=== PATIENT | female | born 1930 | race African-American/Black ===

== ENCOUNTER 2017-05-14 14:38 | Inpatient (IN) | payer MEDICARE, BC ==
[~2017-05-14] VITALS: Ht 149.9 cm; Wt 49.0 kg
[~2017-05-14 14:38] MED LIST: ASPI-630 PO; CARV3.12 PO; CYAN10005 PO; DARB60DI SQ; ERGO500027 PO; FERR325T58 PO; FOLI0.8T21 PO; FOLI0.8T3 PO
[2017-05-14 15:05] LABS: BASO # 0.1 x10^3/uL (0.0-0.2); BASO % 1 % (0-3); EOS % 5 % (0-3); HEMATOCRIT 30.2 % (36.0-47.0); HEMOGLOBIN 9.9 g/dL (12.0-15.5); LYMPH # 1.1 x10^3/uL (1.0-4.8); LYMPH % 15 % (24-48); MEAN CORPUSCULAR HEMOGLOBIN 28 pg (25-35); MEAN CORPUSCULAR HGB CONC 33 g/dL (31-37); MEAN CORPUSCULAR VOLUME 84 fL (79-100); MONO % 10 % (0-9); NEUT % 69 % (31-73); PLATELET COUNT 229 x10^3/uL (140-400); RED BLOOD COUNT 3.58 x10^6/uL (3.50-5.40); RED CELL DISTRIBUTION WIDTH 13.4 % (11.5-14.5); WHITE BLOOD COUNT 7.6 x10^3/uL (4.0-11.0)
[2017-05-14 15:20] LABS: CALCIUM 8.8 mg/dL (8.5-10.1); CREATININE 2.1 mg/dL (0.6-1.0); GFR 26.9
[2017-05-14] MEDS ORDERED: PANT40TA5 PO (15:22)
[2017-05-14] MEDS ORDERED: FOLI0.8T21 PO (15:22)
--- NOTE | 2017-05-14 15:23 | RAD ---
EXAM: CHEST 1 VIEW History :syncope COMPARISON: 02/13/2016 TECHNIQUE: Single portable radiograph of the chest FINDINGS: The cardiac silhouette is unremarkable. The lungs are clear bilaterally. The costophrenic sulci are clear and well demarcated. Surgical clips identified in the left axillary region. IMPRESSION: No radiographic evidence of an acute cardiopulmonary process.
[2017-05-14 15:24] LABS: ALBUMIN 2.7 g/dL (3.4-5.0); ALBUMIN/GLOBULIN RATIO 0.8 (1.0-1.7); TOTAL BILIRUBIN 0.3 mg/dL (0.2-1.0); TOTAL PROTEIN 6.2 g/dL (6.4-8.2)
[2017-05-14] MEDS ORDERED: HYDR-971 PO (15:24)
--- NOTE | 2017-05-14 15:36 | EKG ---
[facility] [address] [place] [address] Test Date: 2017-05-14 Test Time: 14:42:50 Pat Name: SHYAM HAM Department: Room: Gender: F Tree Surgeon: : [id number] Requested By: BHUMIKA LONG Order Number: [id number] Reading MD: Lisandro Wagoner Measurements Intervals [place] Rate: 55 P: 27 [place]: 138 QRS: 41 QRSD: 78 T: 59 QT: 442 QTc: 425 Interpretive Statements SINUS RHYTHM QRS(T) CONTOUR ABNORMALITY CONSISTENT WITH ANTEROSEPTAL INFARCT AGE UNDETERMINED RI6.01 Unconfirmed report Compared to ECG 02/13/2016 11:29:40 Myocardial infarct finding now present ST (T wave) deviation no longer present Electronically Signed On 05-23-2017 12:52:19 CDT by Lisandro Wagoner
[2017-05-14 15:43] LABS: BILIRUBIN,URINE NEGATIVE (NEG); GLUCOSE,URINE NEGATIVE (NEG); NITRITE,URINE NEGATIVE (NEG); PROTEIN,URINE NEGATIVE (NEG-TRACE); UROBILINOGEN,URINE 0.2 mg/dL (0.2 mg/dL)
[2017-05-14 15:54] LABS: BACTERIA,URINE MODERATE /HPF (0-FEW); RBC,URINE 0 /HPF (0-2); SQUAMOUS EPITHELIAL CELL,UR MOD /LPF
--- NOTE | 2017-05-14 16:01 | PHYS DOC ---
Past Medical History Past Medical History: Anemia, Cancer, Dementia, GERD, Heart Disease, Hypertension, Hypothyroid, UTI, Unknown, Other Additional Past Medical Histor: PT STATES SHE HAS A HEART AND KIDNEY PROBLEM, Breast Ca Past Surgical History: Tonsillectomy Additional Past Surgical Histo: CATARACTS, BILAT.MASECTOMY Alcohol Use: Rarely Drug Use: None Adult General Chief Complaint Chief Complaint: SYNCOPE HPI HPI Patient is a 86 year old AA female patient who presents with witnessed syncopal episode swelling at [facility]. Patient was attending a meeting and standing she felt lightheaded and dizzy. She reports slamming into the ground but denies injury. Patient states EMS were then contacted. Staff members witnessed to brief syncopal episodes lasting less than 30 seconds. No reported witnessed seizure episodes. Denies headache, chest pain palpitations or shortness of breath prior to symptoms. Patient did state she felt as though she needed to have a bowel movement prior to episode. Currently denies any symptoms. Patient is on Coreg twice daily. She denies any new change medications , missed medications, nausea vomiting, diarrhea, any acute medical complaints. Review of Systems Review of Systems Review symptoms as per history of present illness. Allergies Allergies Allergies Coded Allergies Type Severity Reaction Last Updated Verified Penicillins Allergy Intermediate Rash 02/14/16 Yes latex Allergy Intermediate Rash 02/14/16 Yes Physical Exam Physical Exam Constitutional: Well developed, well nourished, no acute distress, non-toxic appearance. [] HENT: Normocephalic, atraumatic, bilateral external ears normal, oropharynx moist, nose normal. [] Eyes: PERRLA, EOMI, conjunctiva normal, no discharge. [] Neck: Normal range of motion, no tenderness, supple, no stridor. [] Cardiovascular:Heart rate regular rhythm, no murmur [] Lungs & Thorax: Bilateral breath sounds clear to auscultation [] Abdomen: Bowel sounds normal, soft. [] Skin: Warm, dry, no erythema, no rash. [] Back: No tenderness. [] Extremities: No tenderness, no cyanosis, no clubbing, ROM intact, no edema. [] Neurologic: Alert and oriented X 2, normal motor function, normal sensory function, no focal deficits noted. [] Psychologic: Affect normal, judgement normal, mood normal. [] Current Patient Data Vital Signs Vital Signs Date Time Temp Pulse Resp B/P (MAP) Pulse Ox O2 Delivery O2 Flow Rate FiO2 05/14/17 18:46 82 18 136/59 (84) 98 Room Air 05/14/17 14:40 97.7 97.7 Lab Values Laboratory Tests Test 05/14/17 14:50 05/14/17 15:30 White Blood Count 7.6 x10^3/uL (4.0-11.0) Red Blood Count 3.58 x10^6/uL (3.50-5.40) Hemoglobin 9.9 g/dL (12.0-15.5) L Hematocrit 30.2 % (36.0-47.0) L Mean Corpuscular Volume 84 fL (79-100) Mean Corpuscular Hemoglobin 28 pg (25-35) Mean Corpuscular Hemoglobin Concent 33 g/dL (31-37) Red Cell Distribution Width 13.4 % (11.5-14.5) Platelet Count 229 x10^3/uL (140-400) Neutrophils (%) (Auto) 69 % (31-73) Lymphocytes (%) (Auto) 15 % (24-48) L Monocytes (%) (Auto) 10 % (0-9) H Eosinophils (%) (Auto) 5 % (0-3) H Basophils (%) (Auto) 1 % (0-3) Neutrophils # (Auto) 5.3 x10^3uL (1.8-7.7) Lymphocytes # (Auto) 1.1 x10^3/uL (1.0-4.8) Monocytes # (Auto) 0.8 x10^3/uL (0.0-1.1) Eosinophils # (Auto) 0.3 x10^3/uL (0.0-0.7) Basophils # (Auto) 0.1 x10^3/uL (0.0-0.2) Sodium Level 132 mmol/L (136-145) L Potassium Level 5.0 mmol/L (3.5-5.1) Chloride Level 98 mmol/L (98-107) Carbon Dioxide Level 27 mmol/L (21-32) Anion Gap 7 (6-14) Blood Urea Nitrogen 18 mg/dL (7-20) Creatinine 2.1 mg/dL (0.6-1.0) H Estimated GFR (Cockcroft-Gault) 26.9 BUN/Creatinine Ratio 9 (6-20) Glucose Level 142 mg/dL (70-99) H Calcium Level 8.8 mg/dL (8.5-10.1) Total Bilirubin 0.3 mg/dL (0.2-1.0) Aspartate Amino Transferase (AST) 18 U/L (15-37) Alanine Aminotransferase (ALT) 15 U/L (14-59) Alkaline Phosphatase 61 U/L (46-116) Troponin I Quantitative < 0.017 ng/mL (0.000-0.055) Total Protein 6.2 g/dL (6.4-8.2) L Albumin 2.7 g/dL (3.4-5.0) L Albumin/Globulin Ratio 0.8 (1.0-1.7) L Urine Collection Type Unknown Urine Color Yellow Urine Clarity Cloudy Urine pH 6.0 Urine Specific [place] 1.010 Urine Protein Negative mg/dL (NEG-TRACE) Urine Glucose (UA) Negative mg/dL (NEG) Urine Ketones (Stick) Negative mg/dL (NEG) Urine Blood Negative (NEG) Urine Nitrite Negative (NEG) Urine Bilirubin Negative (NEG) Urine Urobilinogen Dipstick 0.2 mg/dL (0.2 mg/dL) Urine Leukocyte Esterase Small (NEG) Urine RBC 0 /HPF (0-2) Urine WBC 5-10 /HPF (0-4) Urine Squamous Epithelial Cells Mod /LPF Urine Transitional Epithelial Cells Few /LPF Urine Bacteria Moderate /HPF (0-FEW) Urine Hyaline Casts Moderate /HPF Urine Mucus Slight /LPF Laboratory Tests 05/14/17 14:50 Laboratory Tests 05/14/17 14:50 EKG EKG Sinus bradycardia, rate 55, no acute ST-T wave changes, QTC 425.[] Radiology/Procedures Radiology/Procedures [CT head: No acute cardiopulmonary disease per radiology report] Course & Med Decision Making Course & Med Decision Making Pertinent Labs and Imaging studies reviewed. (See chart for details) [With witnessed syncopal episode. Denies headache. Neurologic exam is negative. Patient is bradycardic, heart rate 55.] Dragon Disclaimer Dragon Disclaimer This electronic medical record was generated, in whole or in part, using a voice recognition dictation system. Departure Departure Impression: Primary Impression: Syncope Additional Impression: Bradycardia Disposition: 09 ADMITTED INPATIENT Admitting Physician: Charito Chaparro Referrals: DIMITRIOS LONG (PCP) Problem Qualifiers BHUMIKA LONG DO May 14, 2017 16:01
--- NOTE | 2017-05-14 17:24 | RAD ---
RS Compliance Statement: One or more of the following individualized dose reduction techniques were utilized for this examination: 1. Automated exposure control 2. Adjustment of the mA and/or kV according to patient size 3. Use of iterative reconstruction technique CT head without contrast 05/14/2017 4:58 PM INDICATION: Dizziness, fall COMPARISON: CT head August 08, 2015 TECHNIQUE: Multiple axial CT images of the head were obtained from skull base through the vertex without intravenous contrast. FINDINGS: Head: Ventricles, sulci and basal cisterns are mildly prominent compatible with mild generalized cerebral volume loss. Low-attenuation in the periventricular white matter is compatible with moderate chronic small vessel ischemic changes. There is new calcification involving a M2 segment of the right middle cerebral artery compared to prior examination from August 08, 2015. Vascular opacifications involving the cavernous segments of internal carotid arteries and vertebral arteries are otherwise stable. There is no hydrocephalus. Nuno-white matter differentiation is normal. There is no acute intracranial hemorrhage. There is no mass, mass effect or midline shift. Posterior fossa is normal in appearance. Visualized portions of the orbits are normal with exception of bilateral lens replacement. Paranasal sinuses are well aerated. Mastoid air cells are well aerated. Scalp and calvaria are normal. IMPRESSION: No acute intracranial hemorrhage. New calcification involving the M2 segment of the middle cerebral artery (from 2014). If there are symptoms concerning ischemia in the right middle cerebral artery distribution, further evaluation with CT angiography of the head and neck may be of benefit. Mild generalized cerebral volume loss with moderate low-attenuation in the periventricular white matter compatible with chronic small vessel ischemic changes. Electronically signed by: Ne Westfall MD (05/14/2017 5:21 PM) [facility]
[2017-05-14 21:11] VITALS: BP 170/62
[2017-05-14 23:00] VITALS: BP 154/55
[2017-05-14] MEDS ORDERED: HYDROcodone/APAP 5/325MG 1 TAB TABLET PO PRN (23:00)
--- NOTE | 2017-05-14 23:07 | PDOC1 ---
History and Physical Date of Admission Date of Admission DATE: 05/14/17 TIME: 23:00 Identification/Chief Complaint Chief Complaint syncope Problems: Source Source: Chart review, Patient History of Present Illness History of Present Illness Ms. Cook is a 86 year old AA female patient admit s/p syncopal episode swelling at assisted living.. Was attending a meeting and standing she felt lightheaded and dizzy, fell to the ground, people reported she was hard to arouse > 30 seconds maybe not responsive. She is unaware of any injury from the fall, no pain. brought to ER by EMS, no shaking, no post fatigue, she now feels well has felt well recently, no change in meds she lives at [facility], PCP is Dr. Omid Mortensen Past Medical History Cardiovascular: HTN GI: Diverticulosis, Peptic Ulcer disease Heme/Onc: Anemia NOS, Cancer Musculoskeletal: Osteoarthritis Renal/: Chronic renal insuff Past Surgical History Past Surgical History: Cataract Removal, Mastectomy, Tonsillectomy, Other Family History Family History: Alcohol Abuse, Coronary Artery Disease, Other (athritis) Social History Smoke: No ALCOHOL: none Drugs: None Current Problem List Problem List Problems Medical Problems: (1) Bradycardia Status: Acute (2) Syncope Status: Acute Problems: Current Medications Current Medications Active Scripts Active Aranesp Syringe (Darbepoetin Angel In Polysorbat) 60 Mcg/0.3 Ml Disp.syrin 60 Mcg SQ WEEKLYHS Vitamin B-12 (Cyanocobalamin (Vitamin B-12)) 1,000 Mcg Tablet 1,000 Mcg PO DAILY Reported [place] 5-325 Tablet (Acetaminophen/Hydrocodone Bitart) 1 Each Tablet 1 Tab PO PRN Q6HRS PRN Sravanthi-Satinder Tablet (Folic Acid/Vitamin B Comp W-C) 0.8 Mg Tablet 0.8 Mg PO Pantoprazole Sodium 40 Mg Tablet.dr 1 Tab PO DAILY Iron Supplement (Ferrous Sulfate) 325 Mg Tablet 1 Tab PO DAILY Vitamin D2 (Ergocalciferol (Vitamin D2)) 50,000 Unit Capsule 1 Cap PO WEEKLY Coreg (Carvedilol) 3.125 Mg Tablet 1 Tab PO BID No Known Medications Prior To Admisstion (Info) Each 1 Each MC Allergies Allergies: Coded Allergies: Penicillins (Verified Allergy, Intermediate, Rash, 02/14/16) latex (Verified Allergy, Intermediate, Rash, 02/14/16) ROS General: No: Chills, Night Sweats, Fatigue, Malaise PSYCHOLOGICAL ROS: No: Anxiety, Behavioral Disorder, Concentration difficultie , Decreased libido, Depression, Disorientation, Hallucinations, Hostility, Irritablity, Memory difficulties, Mood Swings, Obsessive thoughts, Other Eyes: Yes Other, No Blurry vision, No Decreased vision, No Double vision, No Dry eyes, No Excessive tearing, No Eye Pain, No Itchy Eyes, No Loss of vision, No Photophobia , No Scotomata, No Uses contacts, No Uses glasses HEENT: YES: Nasal congestion, Nasal discharge, No: Heacaches, Visual Changes, Hearing change, Oral lesions, Sinus pain, Sore Throat, Epistaxis, Sneezing, Vocal changes, Other Respiratory: No: Cough, Hemoptysis, Orthopnea, Pleuritic Pain, Shortness of breath, SOB with excertion, Sputum Changes, Stridor, Tachypnea, Wheezing, Other Cardiovascular: No Chest Pain, No Palpitations, No Orthopnea, No Paroxysmal Noc. Dyspnea, No Edema, No Lt Headedness, No Other Gastrointestinal: No Nausea, No Vomiting, No Abdominal Pain, No Diarrhea, No Constipation, No Melena, No Hematochezia, No Other Genitourinary: No Dysuria, No Frequency, No Incontinence, No Hematuria, No Retention, No Discharge, No Urgency, No Pain, No Flank Pain, No Other, No , No , No , No , No , No , No Musculoskeletal: Yes Joint Stiffness, No Gait Disturbance, No Joint Pain, No Joint Swelling, No Muscle Pain, No Muscular Weakness, No Pain In:, No Swelling In:, No Other Neurological: No Behavorial Changes, No Bowel/Bladder ControlChng, No Confusion , No Dizziness, No Gait Disturbance, No Headaches, No Impaired Coord/balance, No Memory Loss, No Numbness/Tingling, No Seizures, No Speech Problems, No Tremors, No Visual Changes, No Weakness, No Other Skin: Yes Dry Skin, No Hair Changes, No Lumps, No Mole Changes, No Mottling, No Nail Changes, No Pruritus, No Rash, No Skin Lesion Changes, No Other, No Acne Physical Exam General: Alert, Oriented X3, Cooperative HEENT: Atraumatic, PERRLA, EOMI, Mucous membr. moist/pink Heart: no gallops, no murmurs Abdomen: Normal bowel sounds, Soft Rectal Exam: not examined Extremities: No edema, Normal pulses Skin: No significant lesion Neuro: Normal speech, Normal tone, Sensation intact, Cranial nerves 3-12 NL Psych/Mental Status: Mental status NL, Mood NL Vitals Vitals Vital Signs Date Time Temp Pulse Resp B/P (MAP) Pulse Ox O2 Delivery O2 Flow Rate FiO2 05/14/17 21:11 97.9 64 16 170/62 (98) 98 Room Air 97.9 Labs Labs Laboratory Tests Test 05/14/17 14:50 05/14/17 15:30 White Blood Count 7.6 x10^3/uL (4.0-11.0) Red Blood Count 3.58 x10^6/uL (3.50-5.40) Hemoglobin 9.9 g/dL (12.0-15.5) Hematocrit 30.2 % (36.0-47.0) Mean Corpuscular Volume 84 fL (79-100) Mean Corpuscular Hemoglobin 28 pg (25-35) Mean Corpuscular Hemoglobin Concent 33 g/dL (31-37) Red Cell Distribution Width 13.4 % (11.5-14.5) Platelet Count 229 x10^3/uL (140-400) Neutrophils (%) (Auto) 69 % (31-73) Lymphocytes (%) (Auto) 15 % (24-48) Monocytes (%) (Auto) 10 % (0-9) Eosinophils (%) (Auto) 5 % (0-3) Basophils (%) (Auto) 1 % (0-3) Neutrophils # (Auto) 5.3 x10^3uL (1.8-7.7) Lymphocytes # (Auto) 1.1 x10^3/uL (1.0-4.8) Monocytes # (Auto) 0.8 x10^3/uL (0.0-1.1) Eosinophils # (Auto) 0.3 x10^3/uL (0.0-0.7) Basophils # (Auto) 0.1 x10^3/uL (0.0-0.2) Sodium Level 132 mmol/L (136-145) Potassium Level 5.0 mmol/L (3.5-5.1) Chloride Level 98 mmol/L (98-107) Carbon Dioxide Level 27 mmol/L (21-32) Anion Gap 7 (6-14) Blood Urea Nitrogen 18 mg/dL (7-20) Creatinine 2.1 mg/dL (0.6-1.0) Estimated GFR (Cockcroft-Gault) 26.9 BUN/Creatinine Ratio 9 (6-20) Glucose Level 142 mg/dL (70-99) Calcium Level 8.8 mg/dL (8.5-10.1) Total Bilirubin 0.3 mg/dL (0.2-1.0) Aspartate Amino Transf (AST/SGOT) 18 U/L (15-37) Alanine Aminotransferase (ALT/SGPT) 15 U/L (14-59) Alkaline Phosphatase 61 U/L (46-116) Troponin I Quantitative < 0.017 ng/mL (0.000-0.055) Total Protein 6.2 g/dL (6.4-8.2) Albumin 2.7 g/dL (3.4-5.0) Albumin/Globulin Ratio 0.8 (1.0-1.7) Urine Collection Type Unknown Urine Color Yellow Urine Clarity Cloudy Urine pH 6.0 Urine Specific [place] 1.010 Urine Protein Negative mg/dL (NEG-TRACE) Urine Glucose (UA) Negative mg/dL (NEG) Urine Ketones (Stick) Negative mg/dL (NEG) Urine Blood Negative (NEG) Urine Nitrite Negative (NEG) Urine Bilirubin Negative (NEG) Urine Urobilinogen Dipstick 0.2 mg/dL (0.2 mg/dL) Urine Leukocyte Esterase Small (NEG) Urine RBC 0 /HPF (0-2) Urine WBC 5-10 /HPF (0-4) Urine Squamous Epithelial Cells Mod /LPF Urine Transitional Epithelial Cells Few /LPF Urine Bacteria Moderate /HPF (0-FEW) Urine Hyaline Casts Moderate /HPF Urine Mucus Slight /LPF Laboratory Tests Test 05/14/17 14:50 05/14/17 15:30 White Blood Count 7.6 x10^3/uL (4.0-11.0) Red Blood Count 3.58 x10^6/uL (3.50-5.40) Hemoglobin 9.9 g/dL (12.0-15.5) Hematocrit 30.2 % (36.0-47.0) Mean Corpuscular Volume 84 fL (79-100) Mean Corpuscular Hemoglobin 28 pg (25-35) Mean Corpuscular Hemoglobin Concent 33 g/dL (31-37) Red Cell Distribution Width 13.4 % (11.5-14.5) Platelet Count 229 x10^3/uL (140-400) Neutrophils (%) (Auto) 69 % (31-73) Lymphocytes (%) (Auto) 15 % (24-48) Monocytes (%) (Auto) 10 % (0-9) Eosinophils (%) (Auto) 5 % (0-3) Basophils (%) (Auto) 1 % (0-3) Neutrophils # (Auto) 5.3 x10^3uL (1.8-7.7) Lymphocytes # (Auto) 1.1 x10^3/uL (1.0-4.8) Monocytes # (Auto) 0.8 x10^3/uL (0.0-1.1) Eosinophils # (Auto) 0.3 x10^3/uL (0.0-0.7) Basophils # (Auto) 0.1 x10^3/uL (0.0-0.2) Sodium Level 132 mmol/L (136-145) Potassium Level 5.0 mmol/L (3.5-5.1) Chloride Level 98 mmol/L (98-107) Carbon Dioxide Level 27 mmol/L (21-32) Anion Gap 7 (6-14) Blood Urea Nitrogen 18 mg/dL (7-20) Creatinine 2.1 mg/dL (0.6-1.0) Estimated GFR (Cockcroft-Gault) 26.9 BUN/Creatinine Ratio 9 (6-20) Glucose Level 142 mg/dL (70-99) Calcium Level 8.8 mg/dL (8.5-10.1) Total Bilirubin 0.3 mg/dL (0.2-1.0) Aspartate Amino Transf (AST/SGOT) 18 U/L (15-37) Alanine Aminotransferase (ALT/SGPT) 15 U/L (14-59) Alkaline Phosphatase 61 U/L (46-116) Troponin I Quantitative < 0.017 ng/mL (0.000-0.055) Total Protein 6.2 g/dL (6.4-8.2) Albumin 2.7 g/dL (3.4-5.0) Albumin/Globulin Ratio 0.8 (1.0-1.7) Urine Collection Type Unknown Urine Color Yellow Urine Clarity Cloudy Urine pH 6.0 Urine Specific [place] 1.010 Urine Protein Negative mg/dL (NEG-TRACE) Urine Glucose (UA) Negative mg/dL (NEG) Urine Ketones (Stick) Negative mg/dL (NEG) Urine Blood Negative (NEG) Urine Nitrite Negative (NEG) Urine Bilirubin Negative (NEG) Urine Urobilinogen Dipstick 0.2 mg/dL (0.2 mg/dL) Urine Leukocyte Esterase Small (NEG) Urine RBC 0 /HPF (0-2) Urine WBC 5-10 /HPF (0-4) Urine Squamous Epithelial Cells Mod /LPF Urine Transitional Epithelial Cells Few /LPF Urine Bacteria Moderate /HPF (0-FEW) Urine Hyaline Casts Moderate /HPF Urine Mucus Slight /LPF VTE Prophylaxis Ordered VTE Prophylaxis Devices: Yes VTE Pharmacological Prophylaxi: No Assessment/Plan Assessment/Plan syncope fall htn admit, consult CV, tele overnight CKD 3-4, consult renal anemia of CKD moderate malnutrition, serum alb 2.7, no urine protein hyponatremia, admit ALEKSANDR LÓPEZ MD May 14, 2017 23:07
[2017-05-15] MEDS ORDERED: INFLUENZA VAX SCREEN BY RX. MC ONE
[2017-05-15 03:57] VITALS: BP 147/53
[2017-05-15 06:52] LABS: CALCIUM 8.5 mg/dL (8.5-10.1); GFR 28.5; POTASSIUM 4.3 mmol/L (3.5-5.1)
[2017-05-15 07:07] LABS: BASO % 1 % (0-3); EOS % 5 % (0-3); HEMATOCRIT 27.7 % (36.0-47.0); HEMOGLOBIN 9.3 g/dL (12.0-15.5); LYMPH # 1.4 x10^3/uL (1.0-4.8); LYMPH % 24 % (24-48); MEAN CORPUSCULAR HEMOGLOBIN 28 pg (25-35); MEAN CORPUSCULAR HGB CONC 34 g/dL (31-37); MEAN CORPUSCULAR VOLUME 82 fL (79-100); MONO % 15 % (0-9); NEUT % 55 % (31-73); PLATELET COUNT 221 x10^3/uL (140-400); RED BLOOD COUNT 3.37 x10^6/uL (3.50-5.40)
[2017-05-15 07:40] VITALS: BP 171/55
[2017-05-15] MEDS: FOLIC/VIT B COMP W-C (RENAL) TABLET. PO SCH (08:41)
[2017-05-15] MEDS: PANTOPRAZOLE 40 MG TABLET.DR. PO SCH (08:41)
[2017-05-15] MEDS: FERROUS SULFATE 325 MG TABLET. PO SCH (08:41)
[2017-05-15] MEDS: CARVEDILOL 3.125 MG TABLET. PO SCH ×2 (08:41→17:24)
[2017-05-15] MEDS: CYANOCOBALAMIN (VITAMIN B-12) 1,000 MCG TABLET. PO SCH (08:41)
[2017-05-15] MEDS ORDERED: FLU VACC QS2017-18 (36MOS+)/PF 0.5 ML SYRINGE. VAX IM ONE (09:00)
[2017-05-15 11:13] VITALS: BP 154/55
--- NOTE | 2017-05-15 11:21 | PDOC2 ---
CARDIAC CONSULT DATE OF CONSULT Date of Consult DATE: 05/15/17 TIME: 11:20 REASON FOR CONSULT Reason for Consult: Syncope REFERRING PHYSICIAN Referring Physician: Dr. Chaparro SOURCE Source: Chart review, Patient HISTORY OF PRESENT ILLNESS HISTORY OF PRESENT ILLNESS This is an 86 yo female who presented from [facility] living [facility] secondary to near syncopal episode. Patient reports she was walking into the conference room for a meeting and suddenly became dizzy and faint, subsequently falling to the ground. Denies loss of consciousness. No traumatic injury. No prior experience with dizziness or syncope. Satish any chest pain, palpitations, diaphoresis, or nausea/vomiting. No h/o CAD or previous cardiac workup. PAST MEDICAL HISTORY Cardiovascular: HTN Pulmonary: No pertinent hx CENTRAL NERVOUS SYSTEM: Dementia GI: Diverticulosis, Peptic Ulcer disease Heme/Onc: Anemia NOS, Cancer (breast ) Musculoskeletal: Osteoarthritis Rheumatologic: No pertinent hx Infectious disease: No pertinent hx ENT: No pertinent hx Renal/: Chronic renal insuff Endocrine: No pertinent hx Dermatology: No pertinent hx PAST SURGICAL HISTORY Past Surgical History: Tonsillectomy, Other (bilateral mastectomy ) FAMILY HISTORY Family History: Other (noncontributory to age) SOCIAL HISTORY Smoke: No ALCOHOL: occassional Lives: Sn[facility] (assisted Living) CURRENT MEDICATIONS CURRENT MEDICATIONS Current Medications Medications (Trade) Dose Ordered Sig/Shay Route PRN Reason Start Time Stop Time Status Last Admin Dose Admin Carvedilol (Coreg) 3.125 mg BIDWMEALS PO 05/15/17 08:00 05/15/17 08:41 Cyanocobalamin (Vitamin B-12) 1,000 mcg DAILY PO 05/15/17 09:00 05/15/17 08:41 Ferrous Sulfate (Feosol) 325 mg DAILY PO 05/15/17 09:00 05/15/17 08:41 Vitamin B Complex/ Vitamin C (Sravanthi-Satinder) 1 tab DAILY PO 05/15/17 09:00 05/15/17 08:41 Pantoprazole Sodium (Protonix) 40 mg DAILYAC PO 05/15/17 07:30 05/15/17 08:41 ALLERGIES ALLERGIES: Coded Allergies: Penicillins (Verified Allergy, Intermediate, Rash, 02/14/16) latex (Verified Allergy, Intermediate, Rash, 02/14/16) ROS Review of System 14 point ROS conducted with pertinent positives noted above in HPI. PHYSICAL EXAM General: Alert, Oriented X3, Cooperative, No acute distress HEENT: Atraumatic Lungs: Clear to auscultation, Normal air movement Heart: Regular rate, Normal S1, Normal S2, Other (soft systolic murmur ) Abdomen: Soft, No tenderness Extremities: No edema, Normal pulses Skin: No breakdown, No significant lesion Neuro: Normal speech, Sensation intact Psych/Mental Status: Mental status NL, Mood NL MUSCULOSKELETAL: Osteoarthritic changes both hands VITALS VITALS Vital Signs Date Time Temp Pulse Resp B/P (MAP) Pulse Ox O2 Delivery O2 Flow Rate FiO2 05/15/17 11:13 98.1 63 18 154/55 (88) 99 Room Air 98.1 LABS Lab: Laboratory Tests Test 05/14/17 14:50 05/14/17 15:30 05/15/17 05:50 White Blood Count 7.6 x10^3/uL (4.0-11.0) 6.0 x10^3/uL (4.0-11.0) Red Blood Count 3.58 x10^6/uL (3.50-5.40) 3.37 x10^6/uL (3.50-5.40) Hemoglobin 9.9 g/dL (12.0-15.5) 9.3 g/dL (12.0-15.5) Hematocrit 30.2 % (36.0-47.0) 27.7 % (36.0-47.0) Mean Corpuscular Volume 84 fL (79-100) 82 fL (79-100) Mean Corpuscular Hemoglobin 28 pg (25-35) 28 pg (25-35) Mean Corpuscular Hemoglobin Concent 33 g/dL (31-37) 34 g/dL (31-37) Red Cell Distribution Width 13.4 % (11.5-14.5) 13.0 % (11.5-14.5) Platelet Count 229 x10^3/uL (140-400) 221 x10^3/uL (140-400) Neutrophils (%) (Auto) 69 % (31-73) 55 % (31-73) Lymphocytes (%) (Auto) 15 % (24-48) 24 % (24-48) Monocytes (%) (Auto) 10 % (0-9) 15 % (0-9) Eosinophils (%) (Auto) 5 % (0-3) 5 % (0-3) Basophils (%) (Auto) 1 % (0-3) 1 % (0-3) Neutrophils # (Auto) 5.3 x10^3uL (1.8-7.7) 3.3 x10^3uL (1.8-7.7) Lymphocytes # (Auto) 1.1 x10^3/uL (1.0-4.8) 1.4 x10^3/uL (1.0-4.8) Monocytes # (Auto) 0.8 x10^3/uL (0.0-1.1) 0.9 x10^3/uL (0.0-1.1) Eosinophils # (Auto) 0.3 x10^3/uL (0.0-0.7) 0.3 x10^3/uL (0.0-0.7) Basophils # (Auto) 0.1 x10^3/uL (0.0-0.2) 0.0 x10^3/uL (0.0-0.2) Sodium Level 132 mmol/L (136-145) 131 mmol/L (136-145) Potassium Level 5.0 mmol/L (3.5-5.1) 4.3 mmol/L (3.5-5.1) Chloride Level 98 mmol/L (98-107) 98 mmol/L (98-107) Carbon Dioxide Level 27 mmol/L (21-32) 26 mmol/L (21-32) Anion Gap 7 (6-14) 7 (6-14) Blood Urea Nitrogen 18 mg/dL (7-20) 18 mg/dL (7-20) Creatinine 2.1 mg/dL (0.6-1.0) 2.0 mg/dL (0.6-1.0) Estimated GFR (Cockcroft-Gault) 26.9 28.5 BUN/Creatinine Ratio 9 (6-20) Glucose Level 142 mg/dL (70-99) 82 mg/dL (70-99) Calcium Level 8.8 mg/dL (8.5-10.1) 8.5 mg/dL (8.5-10.1) Total Bilirubin 0.3 mg/dL (0.2-1.0) Aspartate Amino Transf (AST/SGOT) 18 U/L (15-37) Alanine Aminotransferase (ALT/SGPT) 15 U/L (14-59) Alkaline Phosphatase 61 U/L (46-116) Troponin I Quantitative < 0.017 ng/mL (0.000-0.055) Total Protein 6.2 g/dL (6.4-8.2) Albumin 2.7 g/dL (3.4-5.0) Albumin/Globulin Ratio 0.8 (1.0-1.7) Urine Collection Type Unknown Urine Color Yellow Urine Clarity Cloudy Urine pH 6.0 Urine Specific [place] 1.010 Urine Protein Negative mg/dL (NEG-TRACE) Urine Glucose (UA) Negative mg/dL (NEG) Urine Ketones (Stick) Negative mg/dL (NEG) Urine Blood Negative (NEG) Urine Nitrite Negative (NEG) Urine Bilirubin Negative (NEG) Urine Urobilinogen Dipstick 0.2 mg/dL (0.2 mg/dL) Urine Leukocyte Esterase Small (NEG) Urine RBC 0 /HPF (0-2) Urine WBC 5-10 /HPF (0-4) Urine Squamous Epithelial Cells Mod /LPF Urine Transitional Epithelial Cells Few /LPF Urine Bacteria Moderate /HPF (0-FEW) Urine Hyaline Casts Moderate /HPF Urine Mucus Slight /LPF ASSESSMENT/PLAN ASSESSMENT/PLAN Syncope/pre-syncope; no acute events noted on telemetry- continue to monitor. Hypertension; Coreg resumed. Remains labile CKD; stable with Cr at baseline Recommendations Repeat troponin. Check lipids, TSH Obtain echo to assess LV function and rule out structural abnormalities. Add Norvasc for better BP control If about is unrevealing, consider event monitor upon discharge with outpatient followup. Problems: ALBERTO CASTILLO APRN May 15, 2017 11:21
--- NOTE | 2017-05-15 11:53 | PDOC2 ---
CONSULT Date of Consult Date of Consult DATE: 05/15/17 TIME: 11:48 Reason for Consult Reason for Consult: RENAL FAILURE Referring Physician Referring Physician: MARIBEL Identification/Chief Complaint Chief Complaint FALL Problems: Source Source: Chart review, Patient History of Present Illness Reason for Visit: THIS IS AN 86 YR OLD HERE AFTER A FALL. SHE DOES NOT KNOW WHAT HAPPENED BUT PER WITNESS SHE FELL DOWN AND WAS OUT ABOUT 30 SECONDS. NO FURTHER DETAILS OF WHERE OR HOW. BUT SHYAM DOES NOT RECALL ANYTHING MORE. SHE DOES NOT THINK SHE TRIPPED ON ANYTHING. CR IS 2.0. 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 NO NSAID ABUSE HX. HX OF INCONTINENCE. NO STONE HX OR ANY SURGICAL HX NOTED Past Medical History Cardiovascular: HTN GI: Diverticulosis, Peptic Ulcer disease Heme/Onc: Anemia NOS, Cancer Musculoskeletal: Osteoarthritis Renal/: Chronic renal insuff Past Surgical History Past Surgical History: Cataract Removal, Mastectomy, Tonsillectomy, Other Family History Family History: Alcohol Abuse, Coronary Artery Disease, Other (athritis) Social History No ALCOHOL: none Drugs: None Lives: Alone Current Problem List Problem List Problems Medical Problems: (1) Bradycardia Status: Acute (2) Syncope Status: Acute Current Medications Current Medications Current Medications Carvedilol (Coreg) 3.125 mg BIDWMEALS PO Last administered on 05/15/17 08:41; Start 05/15/17 at 08:00 Cyanocobalamin (Vitamin B-12) 1,000 mcg DAILY PO Last administered on 08:41; Start 05/15/17 at 09:00 Ergocalciferol (Vitamin D2) 50,000 unit WEEKLY PO ; Start 05/21/17 at 09:00 Ferrous Sulfate (Feosol) 325 mg DAILY PO Last administered on 05/15/17 08:41; Start 05/15/17 at 09:00 Vitamin B Complex/ Vitamin C (Sravanthi-Satinder) 1 tab DAILY PO Last administered on 08:41; Start 05/15/17 at 09:00 Acetaminophen/ Hydrocodone Bitart (Lortab 5/325) 1 tab PRN Q6HRS PRN PO SEVERE PAIN; Start 05/14/17 at 23:00 Pantoprazole Sodium (Protonix) 40 mg DAILYAC PO Last administered on 05/15/17t 08:41; Start 05/15/17 at 07:30 Info (Do NOT chart on this placeholder) 1 each 1X ONCE MC ; Start 05/15/17 at 00:00; Stop 05/15/17 at 00:01; Status UNV Influenza Virus Vaccine Quadrival (Fluarix Quad [id number] Syringe) 0.5 ml ONCE ONCE VAX IM ; Start 05/15/17 at 09:00; Stop 05/15/17 at 09:01; Status DC Active Scripts Active Aranesp Syringe (Darbepoetin Angel In Polysorbat) 60 Mcg/0.3 Ml Disp.syrin 60 Mcg SQ WEEKLYHS Vitamin B-12 (Cyanocobalamin (Vitamin B-12)) 1,000 Mcg Tablet 1,000 Mcg PO DAILY Reported [place] 5-325 Tablet (Acetaminophen/Hydrocodone Bitart) 1 Each Tablet 1 Tab PO PRN Q6HRS PRN Sravanthi-Satinder Tablet (Folic Acid/Vitamin B Comp W-C) 0.8 Mg Tablet 0.8 Mg PO Pantoprazole Sodium 40 Mg Tablet.dr 1 Tab PO DAILY Iron Supplement (Ferrous Sulfate) 325 Mg Tablet 1 Tab PO DAILY Vitamin D2 (Ergocalciferol (Vitamin D2)) 50,000 Unit Capsule 1 Cap PO WEEKLY Coreg (Carvedilol) 3.125 Mg Tablet 1 Tab PO BID No Known Medications Prior To Admisstion (Info) Each 1 Each MC Allergies Allergies: Coded Allergies: Penicillins (Verified Allergy, Intermediate, Rash, 02/14/16) latex (Verified Allergy, Intermediate, Rash, 02/14/16) ROS General: YES: Fatigue, Appetite PSYCHOLOGICAL ROS: YES: Anxiety Eyes: Yes Decreased vision HEENT: YES: Heacaches Respiratory: YES: Cough Cardiovascular: yes Lt Headedness Gastrointestinal: Yes Constipation Genitourinary: YES Incontinence Musculoskeletal: Yes Muscular Weakness Neurological: Yes Weakness Skin: Yes Dry Skin Physical Exam General: Alert, Oriented X3, Cooperative, No acute distress HEENT: Atraumatic, PERRLA Lungs: Clear to auscultation, Normal air movement Heart: Regular rate Abdomen: Normal bowel sounds, Soft, No tenderness Extremities: No clubbing Skin: No breakdown Neuro: Normal speech, Cranial nerves 3-12 NL Psych/Mental Status: Mental status NL, Mood NL MUSCULOSKELETAL: No deformity, Other (DIFFUSE ATROPHY) Vitals VITALS Vital Signs Date Time Temp Pulse Resp B/P (MAP) Pulse Ox O2 Delivery O2 Flow Rate FiO2 05/15/17 11:13 98.1 63 18 154/55 (88) 99 Room Air 98.1 Labs Labs Laboratory Tests Test 05/14/17 14:50 05/14/17 15:30 05/15/17 05:50 White Blood Count 7.6 x10^3/uL (4.0-11.0) 6.0 x10^3/uL (4.0-11.0) Red Blood Count 3.58 x10^6/uL (3.50-5.40) 3.37 x10^6/uL (3.50-5.40) Hemoglobin 9.9 g/dL (12.0-15.5) 9.3 g/dL (12.0-15.5) Hematocrit 30.2 % (36.0-47.0) 27.7 % (36.0-47.0) Mean Corpuscular Volume 84 fL (79-100) 82 fL (79-100) Mean Corpuscular Hemoglobin 28 pg (25-35) 28 pg (25-35) Mean Corpuscular Hemoglobin Concent 33 g/dL (31-37) 34 g/dL (31-37) Red Cell Distribution Width 13.4 % (11.5-14.5) 13.0 % (11.5-14.5) Platelet Count 229 x10^3/uL (140-400) 221 x10^3/uL (140-400) Neutrophils (%) (Auto) 69 % (31-73) 55 % (31-73) Lymphocytes (%) (Auto) 15 % (24-48) 24 % (24-48) Monocytes (%) (Auto) 10 % (0-9) 15 % (0-9) Eosinophils (%) (Auto) 5 % (0-3) 5 % (0-3) Basophils (%) (Auto) 1 % (0-3) 1 % (0-3) Neutrophils # (Auto) 5.3 x10^3uL (1.8-7.7) 3.3 x10^3uL (1.8-7.7) Lymphocytes # (Auto) 1.1 x10^3/uL (1.0-4.8) 1.4 x10^3/uL (1.0-4.8) Monocytes # (Auto) 0.8 x10^3/uL (0.0-1.1) 0.9 x10^3/uL (0.0-1.1) Eosinophils # (Auto) 0.3 x10^3/uL (0.0-0.7) 0.3 x10^3/uL (0.0-0.7) Basophils # (Auto) 0.1 x10^3/uL (0.0-0.2) 0.0 x10^3/uL (0.0-0.2) Sodium Level 132 mmol/L (136-145) 131 mmol/L (136-145) Potassium Level 5.0 mmol/L (3.5-5.1) 4.3 mmol/L (3.5-5.1) Chloride Level 98 mmol/L (98-107) 98 mmol/L (98-107) Carbon Dioxide Level 27 mmol/L (21-32) 26 mmol/L (21-32) Anion Gap 7 (6-14) 7 (6-14) Blood Urea Nitrogen 18 mg/dL (7-20) 18 mg/dL (7-20) Creatinine 2.1 mg/dL (0.6-1.0) 2.0 mg/dL (0.6-1.0) Estimated GFR (Cockcroft-Gault) 26.9 28.5 BUN/Creatinine Ratio 9 (6-20) Glucose Level 142 mg/dL (70-99) 82 mg/dL (70-99) Calcium Level 8.8 mg/dL (8.5-10.1) 8.5 mg/dL (8.5-10.1) Total Bilirubin 0.3 mg/dL (0.2-1.0) Aspartate Amino Transf (AST/SGOT) 18 U/L (15-37) Alanine Aminotransferase (ALT/SGPT) 15 U/L (14-59) Alkaline Phosphatase 61 U/L (46-116) Troponin I Quantitative < 0.017 ng/mL (0.000-0.055) Total Protein 6.2 g/dL (6.4-8.2) Albumin 2.7 g/dL (3.4-5.0) Albumin/Globulin Ratio 0.8 (1.0-1.7) Urine Collection Type Unknown Urine Color Yellow Urine Clarity Cloudy Urine pH 6.0 Urine Specific Fisher 1.010 Urine Protein Negative mg/dL (NEG-TRACE) Urine Glucose (UA) Negative mg/dL (NEG) Urine Ketones (Stick) Negative mg/dL (NEG) Urine Blood Negative (NEG) Urine Nitrite Negative (NEG) Urine Bilirubin Negative (NEG) Urine Urobilinogen Dipstick 0.2 mg/dL (0.2 mg/dL) Urine Leukocyte Esterase Small (NEG) Urine RBC 0 /HPF (0-2) Urine WBC 5-10 /HPF (0-4) Urine Squamous Epithelial Cells Mod /LPF Urine Transitional Epithelial Cells Few /LPF Urine Bacteria Moderate /HPF (0-FEW) Urine Hyaline Casts Moderate /HPF Urine Mucus Slight /LPF Laboratory Tests Test 05/14/17 14:50 05/14/17 15:30 05/15/17 05:50 White Blood Count 7.6 x10^3/uL (4.0-11.0) 6.0 x10^3/uL (4.0-11.0) Red Blood Count 3.58 x10^6/uL (3.50-5.40) 3.37 x10^6/uL (3.50-5.40) Hemoglobin 9.9 g/dL (12.0-15.5) 9.3 g/dL (12.0-15.5) Hematocrit 30.2 % (36.0-47.0) 27.7 % (36.0-47.0) Mean Corpuscular Volume 84 fL (79-100) 82 fL (79-100) Mean Corpuscular Hemoglobin 28 pg (25-35) 28 pg (25-35) Mean Corpuscular Hemoglobin Concent 33 g/dL (31-37) 34 g/dL (31-37) Red Cell Distribution Width 13.4 % (11.5-14.5) 13.0 % (11.5-14.5) Platelet Count 229 x10^3/uL (140-400) 221 x10^3/uL (140-400) Neutrophils (%) (Auto) 69 % (31-73) 55 % (31-73) Lymphocytes (%) (Auto) 15 % (24-48) 24 % (24-48) Monocytes (%) (Auto) 10 % (0-9) 15 % (0-9) Eosinophils (%) (Auto) 5 % (0-3) 5 % (0-3) Basophils (%) (Auto) 1 % (0-3) 1 % (0-3) Neutrophils # (Auto) 5.3 x10^3uL (1.8-7.7) 3.3 x10^3uL (1.8-7.7) Lymphocytes # (Auto) 1.1 x10^3/uL (1.0-4.8) 1.4 x10^3/uL (1.0-4.8) Monocytes # (Auto) 0.8 x10^3/uL (0.0-1.1) 0.9 x10^3/uL (0.0-1.1) Eosinophils # (Auto) 0.3 x10^3/uL (0.0-0.7) 0.3 x10^3/uL (0.0-0.7) Basophils # (Auto) 0.1 x10^3/uL (0.0-0.2) 0.0 x10^3/uL (0.0-0.2) Sodium Level 132 mmol/L (136-145) 131 mmol/L (136-145) Potassium Level 5.0 mmol/L (3.5-5.1) 4.3 mmol/L (3.5-5.1) Chloride Level 98 mmol/L (98-107) 98 mmol/L (98-107) Carbon Dioxide Level 27 mmol/L (21-32) 26 mmol/L (21-32) Anion Gap 7 (6-14) 7 (6-14) Blood Urea Nitrogen 18 mg/dL (7-20) 18 mg/dL (7-20) Creatinine 2.1 mg/dL (0.6-1.0) 2.0 mg/dL (0.6-1.0) Estimated GFR (Cockcroft-Gault) 26.9 28.5 BUN/Creatinine Ratio 9 (6-20) Glucose Level 142 mg/dL (70-99) 82 mg/dL (70-99) Calcium Level 8.8 mg/dL (8.5-10.1) 8.5 mg/dL (8.5-10.1) Total Bilirubin 0.3 mg/dL (0.2-1.0) Aspartate Amino Transf (AST/SGOT) 18 U/L (15-37) Alanine Aminotransferase (ALT/SGPT) 15 U/L (14-59) Alkaline Phosphatase 61 U/L (46-116) Troponin I Quantitative < 0.017 ng/mL (0.000-0.055) Total Protein 6.2 g/dL (6.4-8.2) Albumin 2.7 g/dL (3.4-5.0) Albumin/Globulin Ratio 0.8 (1.0-1.7) Urine Collection Type Unknown Urine Color Yellow Urine Clarity Cloudy Urine pH 6.0 Urine Specific Fisher 1.010 Urine Protein Negative mg/dL (NEG-TRACE) Urine Glucose (UA) Negative mg/dL (NEG) Urine Ketones (Stick) Negative mg/dL (NEG) Urine Blood Negative (NEG) Urine Nitrite Negative (NEG) Urine Bilirubin Negative (NEG) Urine Urobilinogen Dipstick 0.2 mg/dL (0.2 mg/dL) Urine Leukocyte Esterase Small (NEG) Urine RBC 0 /HPF (0-2) Urine WBC 5-10 /HPF (0-4) Urine Squamous Epithelial Cells Mod /LPF Urine Transitional Epithelial Cells Few /LPF Urine Bacteria Moderate /HPF (0-FEW) Urine Hyaline Casts Moderate /HPF Urine Mucus Slight /LPF Assessment/Plan Assessment/Plan IMP SYNCOPE HTN CKD STAGE 4-STABLE ANEMIA PLAN SYNCOPE WORK UP RENAL FX IS STABLE AND AT BASELINE WILL FOLLOW WITH YOU KRISTEN HAIR MD May 15, 2017 11:53
[2017-05-15 13:01] LABS: CHOLESTEROL/HDL RATIO 3.4
[2017-05-15] MEDS: amLODIPine BESYLATE 5 MG TABLET PO SCH (14:33)
--- NOTE | 2017-05-15 14:58 | CARD ---
APPROVED REPORT EXAM: Two-dimensional and M-mode echocardiogram with Doppler and color Doppler. Other Information Quality : Average Rhythm : NSR INDICATION Syncope 2D DIMENSIONS RVDd2.1 (2.9-3.5cm)Left Atrium(2D)3.0 (1.6-4.0cm) IVSd0.9 (0.7-1.1cm)Aortic Root(2D)2.6 (2.0-3.7cm) LVDd4.0 (3.9-5.9cm)LVOT Diameter2.0 (1.8-2.4cm) PWd0.9 (0.7-1.1cm)LVDs2.6 (2.5-4.0cm) FS (%) 35.6 %SV46.3 ml LVEF(%)65.7 (>50%) Aortic Valve AoV Peak Rob.120.6cm/sAoV VTI27.8cm AO Peak GR.5.8mmHgLVOT Peak Rob.92.9cm/s LVOT VTI 29.45cmAO Mean GR.3mmHg ERICA (VMAX)2.24qa9LKI (VTI)3.25cm2 Mitral Valve MV E Zzurmojt66.5cm/sMV DECEL [id number] MV A Gpzdpyck297.0cm/sMV E Mean Gr.1mmHg MV RJZ19trA/A Ratio0.8 MV A [id number] (PHT)3.63cm2 TDI E/Lateral E'11.8E/Medial E'14.8 Pulmonary Valve PV Peak Avgyfsbs55.3cm/sPV Peak Grad.4mmHg RVOT VTI22.5cm Tricuspid Valve TR P. Phjsiuoi634cb/sRAP [id number] TR Peak Gr.21kkPeJXFA32lpYp Pulmonary Vein S1 Jxadvlbf42.9cm/sD2 Rdwxpggs03.2cm/s LEFT VENTRICLE The left ventricle is normal size. Proximal septal thickening is noted. Left ventricle systolic funct ion is normal. The Ejection Fraction is 55-60%. There is normal LV segmental wall motion. The left ve ntricular diastolic function and filling is normal for age. There is no ventricular septal defect vis ualized. RIGHT VENTRICLE The right ventricle is normal size. The right ventricular systolic function is normal. ATRIA The left atrium size is normal. The right atrium size is normal. The interatrial septum is intact wit h no evidence for an atrial septal defect or patent foramen ovale as noted on 2-D or Doppler imaging. AORTIC VALVE The aortic valve is mildly calcified. The aortic valve is trileaflet. Doppler and Color Flow revealed no significant aortic regurgitation. There is no significant aortic valvular stenosis. MITRAL VALVE The mitral valve leaflets are thickened. There is no mitral valve stenosis. Doppler and Color Flow re vealed trace to mild mitral regurgitation. TRICUSPID VALVE The tricuspid valve is normal in structure and function. Doppler and Color Flow revealed trace to mil d tricuspid regurgitation. The PA pressure was estimated at 29 mmHg. There is no tricuspid valve sten osis. PULMONIC VALVE The pulmonic valve is not well visualized. Doppler and Color Flow revealed trace pulmonic valvular re gurgitation. There is no pulmonic valvular stenosis. GREAT VESSELS The aortic root is normal in size. The ascending aorta is normal in size. Normal pulmonary venous britta w (Doppler). The IVC was not visualized. PERICARDIAL EFFUSION There is no evidence of significant pericardial effusion. Critical Notification Critical Value: No <Conclusion> The left ventricle is normal size. Left ventricle systolic function is normal. The Ejection Fraction is 55-60%. Proximal septal thickening is noted. There is no significant aortic valvular stenosis. Doppler and Color Flow revealed no significant aortic regurgitation. Doppler and Color Flow revealed trace to mild mitral regurgitation. Doppler and Color Flow revealed trace to mild tricuspid regurgitation. The PA pressure was estimated at 29 mmHg.
[2017-05-15 15:16] VITALS: BP 135/58
--- NOTE | 2017-05-15 15:24 | PDOC ---
PROGRESS NOTES Chief Complaint Chief Complaint syncope fall htn CKD 4, stable, consult renal anemia of CKD moderate malnutrition, hyponatremia, History of Present Illness History of Present Illness DC if stable from CV eval f/u Dr. Mortensen Vitals Vitals Vital Signs Date Time Temp Pulse Resp B/P (MAP) Pulse Ox O2 Delivery O2 Flow Rate FiO2 05/15/17 15:16 98.3 42 18 135/58 (83) 99 Room Air 98.3 Physical Exam General: Alert, Oriented X3, Cooperative, No acute distress Heart: Regular rate, Normal S1, Normal S2, Other (soft systolic murmur ) Lungs: Clear Abdomen: Soft, No tenderness Extremities: No edema, Normal pulses Skin: No breakdown, No significant lesion Labs LABS Laboratory Tests Test 05/14/17 15:30 05/15/17 05:50 Urine Collection Type Unknown Urine Color Yellow Urine Clarity Cloudy Urine pH 6.0 Urine Specific [place] 1.010 Urine Protein Negative mg/dL (NEG-TRACE) Urine Glucose (UA) Negative mg/dL (NEG) Urine Ketones (Stick) Negative mg/dL (NEG) Urine Blood Negative (NEG) Urine Nitrite Negative (NEG) Urine Bilirubin Negative (NEG) Urine Urobilinogen Dipstick 0.2 mg/dL (0.2 mg/dL) Urine Leukocyte Esterase Small (NEG) Urine RBC 0 /HPF (0-2) Urine WBC 5-10 /HPF (0-4) Urine Squamous Epithelial Cells Mod /LPF Urine Transitional Epithelial Cells Few /LPF Urine Bacteria Moderate /HPF (0-FEW) Urine Hyaline Casts Moderate /HPF Urine Mucus Slight /LPF White Blood Count 6.0 x10^3/uL (4.0-11.0) Red Blood Count 3.37 x10^6/uL (3.50-5.40) Hemoglobin 9.3 g/dL (12.0-15.5) Hematocrit 27.7 % (36.0-47.0) Mean Corpuscular Volume 82 fL (79-100) Mean Corpuscular Hemoglobin 28 pg (25-35) Mean Corpuscular Hemoglobin Concent 34 g/dL (31-37) Red Cell Distribution Width 13.0 % (11.5-14.5) Platelet Count 221 x10^3/uL (140-400) Neutrophils (%) (Auto) 55 % (31-73) Lymphocytes (%) (Auto) 24 % (24-48) Monocytes (%) (Auto) 15 % (0-9) Eosinophils (%) (Auto) 5 % (0-3) Basophils (%) (Auto) 1 % (0-3) Neutrophils # (Auto) 3.3 x10^3uL (1.8-7.7) Lymphocytes # (Auto) 1.4 x10^3/uL (1.0-4.8) Monocytes # (Auto) 0.9 x10^3/uL (0.0-1.1) Eosinophils # (Auto) 0.3 x10^3/uL (0.0-0.7) Basophils # (Auto) 0.0 x10^3/uL (0.0-0.2) Sodium Level 131 mmol/L (136-145) Potassium Level 4.3 mmol/L (3.5-5.1) Chloride Level 98 mmol/L (98-107) Carbon Dioxide Level 26 mmol/L (21-32) Anion Gap 7 (6-14) Blood Urea Nitrogen 18 mg/dL (7-20) Creatinine 2.0 mg/dL (0.6-1.0) Estimated GFR (Cockcroft-Gault) 28.5 Glucose Level 82 mg/dL (70-99) Calcium Level 8.5 mg/dL (8.5-10.1) Troponin I Quantitative < 0.017 ng/mL (0.000-0.055) Triglycerides Level 72 mg/dL (0-150) Cholesterol Level 174 mg/dL (0-200) LDL Cholesterol, Calculated 109 mg/dL (0-100) VLDL Cholesterol, Calculated 14 mg/dL (0-40) Non-HDL Cholesterol Calculated 123 mg/dL (0-129) HDL Cholesterol 51 mg/dL (40-60) Cholesterol/HDL Ratio 3.4 Thyroid Stimulating Hormone (TSH) 2.596 uIU/mL (0.358-3.74) Assessment and Plan Assessmemt and Plan Problems Medical Problems: (1) Bradycardia Status: Acute (2) Syncope Status: Acute Problems: Comment Review of Relevant I have reviewed the following items mita (where applicable) has been applied. Labs Laboratory Tests Test 05/14/17 14:50 05/14/17 15:30 05/15/17 05:50 White Blood Count 7.6 x10^3/uL (4.0-11.0) 6.0 x10^3/uL (4.0-11.0) Red Blood Count 3.58 x10^6/uL (3.50-5.40) 3.37 x10^6/uL (3.50-5.40) Hemoglobin 9.9 g/dL (12.0-15.5) 9.3 g/dL (12.0-15.5) Hematocrit 30.2 % (36.0-47.0) 27.7 % (36.0-47.0) Mean Corpuscular Volume 84 fL (79-100) 82 fL (79-100) Mean Corpuscular Hemoglobin 28 pg (25-35) 28 pg (25-35) Mean Corpuscular Hemoglobin Concent 33 g/dL (31-37) 34 g/dL (31-37) Red Cell Distribution Width 13.4 % (11.5-14.5) 13.0 % (11.5-14.5) Platelet Count 229 x10^3/uL (140-400) 221 x10^3/uL (140-400) Neutrophils (%) (Auto) 69 % (31-73) 55 % (31-73) Lymphocytes (%) (Auto) 15 % (24-48) 24 % (24-48) Monocytes (%) (Auto) 10 % (0-9) 15 % (0-9) Eosinophils (%) (Auto) 5 % (0-3) 5 % (0-3) Basophils (%) (Auto) 1 % (0-3) 1 % (0-3) Neutrophils # (Auto) 5.3 x10^3uL (1.8-7.7) 3.3 x10^3uL (1.8-7.7) Lymphocytes # (Auto) 1.1 x10^3/uL (1.0-4.8) 1.4 x10^3/uL (1.0-4.8) Monocytes # (Auto) 0.8 x10^3/uL (0.0-1.1) 0.9 x10^3/uL (0.0-1.1) Eosinophils # (Auto) 0.3 x10^3/uL (0.0-0.7) 0.3 x10^3/uL (0.0-0.7) Basophils # (Auto) 0.1 x10^3/uL (0.0-0.2) 0.0 x10^3/uL (0.0-0.2) Sodium Level 132 mmol/L (136-145) 131 mmol/L (136-145) Potassium Level 5.0 mmol/L (3.5-5.1) 4.3 mmol/L (3.5-5.1) Chloride Level 98 mmol/L (98-107) 98 mmol/L (98-107) Carbon Dioxide Level 27 mmol/L (21-32) 26 mmol/L (21-32) Anion Gap 7 (6-14) 7 (6-14) Blood Urea Nitrogen 18 mg/dL (7-20) 18 mg/dL (7-20) Creatinine 2.1 mg/dL (0.6-1.0) 2.0 mg/dL (0.6-1.0) Estimated GFR (Cockcroft-Gault) 26.9 28.5 BUN/Creatinine Ratio 9 (6-20) Glucose Level 142 mg/dL (70-99) 82 mg/dL (70-99) Calcium Level 8.8 mg/dL (8.5-10.1) 8.5 mg/dL (8.5-10.1) Total Bilirubin 0.3 mg/dL (0.2-1.0) Aspartate Amino Transf (AST/SGOT) 18 U/L (15-37) Alanine Aminotransferase (ALT/SGPT) 15 U/L (14-59) Alkaline Phosphatase 61 U/L (46-116) Troponin I Quantitative < 0.017 ng/mL (0.000-0.055) < 0.017 ng/mL (0.000-0.055) Total Protein 6.2 g/dL (6.4-8.2) Albumin 2.7 g/dL (3.4-5.0) Albumin/Globulin Ratio 0.8 (1.0-1.7) Urine Collection Type Unknown Urine Color Yellow Urine Clarity Cloudy Urine pH 6.0 Urine Specific [place] 1.010 Urine Protein Negative mg/dL (NEG-TRACE) Urine Glucose (UA) Negative mg/dL (NEG) Urine Ketones (Stick) Negative mg/dL (NEG) Urine Blood Negative (NEG) Urine Nitrite Negative (NEG) Urine Bilirubin Negative (NEG) Urine Urobilinogen Dipstick 0.2 mg/dL (0.2 mg/dL) Urine Leukocyte Esterase Small (NEG) Urine RBC 0 /HPF (0-2) Urine WBC 5-10 /HPF (0-4) Urine Squamous Epithelial Cells Mod /LPF Urine Transitional Epithelial Cells Few /LPF Urine Bacteria Moderate /HPF (0-FEW) Urine Hyaline Casts Moderate /HPF Urine Mucus Slight /LPF Triglycerides Level 72 mg/dL (0-150) Cholesterol Level 174 mg/dL (0-200) LDL Cholesterol, Calculated 109 mg/dL (0-100) VLDL Cholesterol, Calculated 14 mg/dL (0-40) Non-HDL Cholesterol Calculated 123 mg/dL (0-129) HDL Cholesterol 51 mg/dL (40-60) Cholesterol/HDL Ratio 3.4 Thyroid Stimulating Hormone (TSH) 2.596 uIU/mL (0.358-3.74) Laboratory Tests Test 05/14/17 15:30 05/15/17 05:50 Urine Collection Type Unknown Urine Color Yellow Urine Clarity Cloudy Urine pH 6.0 Urine Specific [place] 1.010 Urine Protein Negative mg/dL (NEG-TRACE) Urine Glucose (UA) Negative mg/dL (NEG) Urine Ketones (Stick) Negative mg/dL (NEG) Urine Blood Negative (NEG) Urine Nitrite Negative (NEG) Urine Bilirubin Negative (NEG) Urine Urobilinogen Dipstick 0.2 mg/dL (0.2 mg/dL) Urine Leukocyte Esterase Small (NEG) Urine RBC 0 /HPF (0-2) Urine WBC 5-10 /HPF (0-4) Urine Squamous Epithelial Cells Mod /LPF Urine Transitional Epithelial Cells Few /LPF Urine Bacteria Moderate /HPF (0-FEW) Urine Hyaline Casts Moderate /HPF Urine Mucus Slight /LPF White Blood Count 6.0 x10^3/uL (4.0-11.0) Red Blood Count 3.37 x10^6/uL (3.50-5.40) Hemoglobin 9.3 g/dL (12.0-15.5) Hematocrit 27.7 % (36.0-47.0) Mean Corpuscular Volume 82 fL (79-100) Mean Corpuscular Hemoglobin 28 pg (25-35) Mean Corpuscular Hemoglobin Concent 34 g/dL (31-37) Red Cell Distribution Width 13.0 % (11.5-14.5) Platelet Count 221 x10^3/uL (140-400) Neutrophils (%) (Auto) 55 % (31-73) Lymphocytes (%) (Auto) 24 % (24-48) Monocytes (%) (Auto) 15 % (0-9) Eosinophils (%) (Auto) 5 % (0-3) Basophils (%) (Auto) 1 % (0-3) Neutrophils # (Auto) 3.3 x10^3uL (1.8-7.7) Lymphocytes # (Auto) 1.4 x10^3/uL (1.0-4.8) Monocytes # (Auto) 0.9 x10^3/uL (0.0-1.1) Eosinophils # (Auto) 0.3 x10^3/uL (0.0-0.7) Basophils # (Auto) 0.0 x10^3/uL (0.0-0.2) Sodium Level 131 mmol/L (136-145) Potassium Level 4.3 mmol/L (3.5-5.1) Chloride Level 98 mmol/L (98-107) Carbon Dioxide Level 26 mmol/L (21-32) Anion Gap 7 (6-14) Blood Urea Nitrogen 18 mg/dL (7-20) Creatinine 2.0 mg/dL (0.6-1.0) Estimated GFR (Cockcroft-Gault) 28.5 Glucose Level 82 mg/dL (70-99) Calcium Level 8.5 mg/dL (8.5-10.1) Troponin I Quantitative < 0.017 ng/mL (0.000-0.055) Triglycerides Level 72 mg/dL (0-150) Cholesterol Level 174 mg/dL (0-200) LDL Cholesterol, Calculated 109 mg/dL (0-100) VLDL Cholesterol, Calculated 14 mg/dL (0-40) Non-HDL Cholesterol Calculated 123 mg/dL (0-129) HDL Cholesterol 51 mg/dL (40-60) Cholesterol/HDL Ratio 3.4 Thyroid Stimulating Hormone (TSH) 2.596 uIU/mL (0.358-3.74) Medications Current Medications Carvedilol (Coreg) 3.125 mg BIDWMEALS PO Last administered on 05/15/17 08:41; Start 05/15/17 at 08:00 Cyanocobalamin (Vitamin B-12) 1,000 mcg DAILY PO Last administered on 08:41; Start 05/15/17 at 09:00 Ergocalciferol (Vitamin D2) 50,000 unit WEEKLY PO ; Start 05/21/17 at 09:00 Ferrous Sulfate (Feosol) 325 mg DAILY PO Last administered on 05/15/17 08:41; Start 05/15/17 at 09:00 Vitamin B Complex/ Vitamin C (Sravanthi-Satinder) 1 tab DAILY PO Last administered on 08:41; Start 05/15/17 at 09:00 Acetaminophen/ Hydrocodone Bitart (Lortab 5/325) 1 tab PRN Q6HRS PRN PO SEVERE PAIN; Start 05/14/17 at 23:00 Pantoprazole Sodium (Protonix) 40 mg DAILYAC PO Last administered on 05/15/17 08:41; Start 05/15/17 at 07:30 Info (Do NOT chart on this placeholder) 1 each 1X ONCE MC ; Start 05/15/17 at 00:00; Stop 05/15/17 at 00:01; Status UNV Influenza Virus Vaccine Quadrival (Fluarix Quad [id number] Syringe) 0.5 ml ONCE ONCE VAX IM Last administered on 05/15/17 14:37; Start 05/15/17 at 09:00; Stop 05/15/17 at 09:01; Status DC Amlodipine Besylate (Norvasc) 5 mg DAILY PO Last administered on 05/15/17 14: 33; Start 05/15/17 at 12:45 Active Scripts Active Aranesp Syringe (Darbepoetin Angel In Polysorbat) 60 Mcg/0.3 Ml Disp.syrin 60 Mcg SQ WEEKLYHS Vitamin B-12 (Cyanocobalamin (Vitamin B-12)) 1,000 Mcg Tablet 1,000 Mcg PO DAILY Reported [place] 5-325 Tablet (Acetaminophen/Hydrocodone Bitart) 1 Each Tablet 1 Tab PO PRN Q6HRS PRN Sravanthi-Satinder Tablet (Folic Acid/Vitamin B Comp W-C) 0.8 Mg Tablet 0.8 Mg PO Pantoprazole Sodium 40 Mg Tablet. 1 Tab PO DAILY Iron Supplement (Ferrous Sulfate) 325 Mg Tablet 1 Tab PO DAILY Vitamin D2 (Ergocalciferol (Vitamin D2)) 50,000 Unit Capsule 1 Cap PO WEEKLY Coreg (Carvedilol) 3.125 Mg Tablet 1 Tab PO BID No Known Medications Prior To Admisstion (Info) Each 1 Each Vitals/I & O Vital Sign - Last 24 Hours 05/14/17 05/14/17 05/14/17 05/14/17 15:46 16:46 17:16 17:46 Pulse 60 61 68 52 Resp 17 16 16 22 B/P (MAP) 160/63 (95) 139/89 (106) 157/72 (100) 181/74 (109) Pulse Ox 97 98 96 97 O2 Delivery Room Air Room Air Room Air Room Air 05/14/17 05/14/17 05/14/17 05/14/17 18:16 18:46 19:16 19:46 Pulse 74 82 58 66 Resp 16 18 20 22 B/P (MAP) 166/70 (102) 136/59 (84) 164/73 (103) 156/70 (98) Pulse Ox 97 98 97 98 O2 Delivery Room Air Room Air Room Air Room Air 05/14/17 05/14/17 05/14/17 05/14/17 19:59 20:16 21:11 23:00 Temp 97.9 97.5 97.9 97.5 Pulse 68 64 65 Resp 20 16 18 B/P (MAP) 162/100 (120) 170/62 (98) 154/55 (88) Pulse Ox 97 98 99 O2 Delivery Room Air Room Air Room Air Room Air 05/14/17 05/15/17 05/15/17 05/15/17 23:18 03:57 07:40 08:00 Temp 97.6 98.6 97.6 98.6 Pulse 68 59 Resp 18 18 B/P (MAP) 147/53 (84) 171/55 (93) Pulse Ox 98 100 O2 Delivery Room Air Room Air Room Air Room Air 05/15/17 05/15/17 05/15/17 05/15/17 08:41 11:13 14:33 15:16 Temp 98.1 98.3 98.1 98.3 Pulse 59 63 63 42 Resp 18 18 B/P (MAP) 171/55 154/55 (88) 154/55 135/58 (83) Pulse Ox 99 99 O2 Delivery Room Air Room Air ALEKSANDR LÓPEZ MD May 15, 2017 15:24
[2017-05-15] MEDS ORDERED: AMLO5TAB2 PO (15:25)
[2017-05-15 19:41] VITALS: BP 136/49
[2017-05-15 23:00] VITALS: BP 151/85
[2017-05-16 02:52] VITALS: BP 150/70
[2017-05-16 05:41] LABS: CALCIUM 8.9 mg/dL (8.5-10.1); CREATININE 2.1 mg/dL (0.6-1.0); GFR 26.9; POTASSIUM 4.4 mmol/L (3.5-5.1)
[2017-05-16 07:30] VITALS: BP 126/57
--- NOTE | 2017-05-16 09:23 | PDOC ---
PROGRESS NOTES Chief Complaint Chief Complaint syncope fall htn CKD 4, stable, consult renal anemia of CKD moderate malnutrition, hyponatremia, History of Present Illness History of Present Illness DC if stable from CV eval f/u Dr. Mortensen Vitals Vitals Vital Signs Date Time Temp Pulse Resp B/P (MAP) Pulse Ox O2 Delivery O2 Flow Rate FiO2 05/16/17 07:30 98.7 65 19 126/57 (80) 99 Room Air 98.7 Physical Exam General: Alert, Oriented X3, Cooperative, No acute distress Heart: Regular rate, Normal S1, Normal S2, Other (soft systolic murmur ) Lungs: Clear Abdomen: Soft, No tenderness Extremities: No edema, Normal pulses Skin: No breakdown, No significant lesion Labs LABS Laboratory Tests Test 05/16/17 04:42 Sodium Level 131 mmol/L (136-145) Potassium Level 4.4 mmol/L (3.5-5.1) Chloride Level 98 mmol/L (98-107) Carbon Dioxide Level 26 mmol/L (21-32) Anion Gap 7 (6-14) Blood Urea Nitrogen 17 mg/dL (7-20) Creatinine 2.1 mg/dL (0.6-1.0) Estimated GFR (Cockcroft-Gault) 26.9 Glucose Level 88 mg/dL (70-99) Calcium Level 8.9 mg/dL (8.5-10.1) Assessment and Plan Assessmemt and Plan Problems Medical Problems: (1) Bradycardia Status: Acute (2) Syncope Status: Acute Pt at baseline. Will dc with HH at Assisted living See dictation Problems: Comment Review of Relevant I have reviewed the following items mita (where applicable) has been applied. Labs Laboratory Tests Test 05/14/17 14:50 05/14/17 15:30 05/14/17 21:30 05/15/17 05:50 White Blood Count 7.6 x10^3/uL (4.0-11.0) 6.0 x10^3/uL (4.0-11.0) Red Blood Count 3.58 x10^6/uL (3.50-5.40) 3.37 x10^6/uL (3.50-5.40) Hemoglobin 9.9 g/dL (12.0-15.5) 9.3 g/dL (12.0-15.5) Hematocrit 30.2 % (36.0-47.0) 27.7 % (36.0-47.0) Mean Corpuscular Volume 84 fL (79-100) 82 fL (79-100) Mean Corpuscular Hemoglobin 28 pg (25-35) 28 pg (25-35) Mean Corpuscular Hemoglobin Concent 33 g/dL (31-37) 34 g/dL (31-37) Red Cell Distribution Width 13.4 % (11.5-14.5) 13.0 % (11.5-14.5) Platelet Count 229 x10^3/uL (140-400) 221 x10^3/uL (140-400) Neutrophils (%) (Auto) 69 % (31-73) 55 % (31-73) Lymphocytes (%) (Auto) 15 % (24-48) 24 % (24-48) Monocytes (%) (Auto) 10 % (0-9) 15 % (0-9) Eosinophils (%) (Auto) 5 % (0-3) 5 % (0-3) Basophils (%) (Auto) 1 % (0-3) 1 % (0-3) Neutrophils # (Auto) 5.3 x10^3uL (1.8-7.7) 3.3 x10^3uL (1.8-7.7) Lymphocytes # (Auto) 1.1 x10^3/uL (1.0-4.8) 1.4 x10^3/uL (1.0-4.8) Monocytes # (Auto) 0.8 x10^3/uL (0.0-1.1) 0.9 x10^3/uL (0.0-1.1) Eosinophils # (Auto) 0.3 x10^3/uL (0.0-0.7) 0.3 x10^3/uL (0.0-0.7) Basophils # (Auto) 0.1 x10^3/uL (0.0-0.2) 0.0 x10^3/uL (0.0-0.2) Sodium Level 132 mmol/L (136-145) 131 mmol/L (136-145) Potassium Level 5.0 mmol/L (3.5-5.1) 4.3 mmol/L (3.5-5.1) Chloride Level 98 mmol/L (98-107) 98 mmol/L (98-107) Carbon Dioxide Level 27 mmol/L (21-32) 26 mmol/L (21-32) Anion Gap 7 (6-14) 7 (6-14) Blood Urea Nitrogen 18 mg/dL (7-20) 18 mg/dL (7-20) Creatinine 2.1 mg/dL (0.6-1.0) 2.0 mg/dL (0.6-1.0) Estimated GFR (Cockcroft-Gault) 26.9 28.5 BUN/Creatinine Ratio 9 (6-20) Glucose Level 142 mg/dL (70-99) 82 mg/dL (70-99) Calcium Level 8.8 mg/dL (8.5-10.1) 8.5 mg/dL (8.5-10.1) Total Bilirubin 0.3 mg/dL (0.2-1.0) Aspartate Amino Transf (AST/SGOT) 18 U/L (15-37) Alanine Aminotransferase (ALT/SGPT) 15 U/L (14-59) Alkaline Phosphatase 61 U/L (46-116) Troponin I Quantitative < 0.017 ng/mL (0.000-0.055) < 0.017 ng/mL (0.000-0.055) Total Protein 6.2 g/dL (6.4-8.2) Albumin 2.7 g/dL (3.4-5.0) Albumin/Globulin Ratio 0.8 (1.0-1.7) Urine Collection Type Unknown Urine Color Yellow Urine Clarity Cloudy Urine pH 6.0 Urine Specific [place] 1.010 Urine Protein Negative mg/dL (NEG-TRACE) Urine Glucose (UA) Negative mg/dL (NEG) Urine Ketones (Stick) Negative mg/dL (NEG) Urine Blood Negative (NEG) Urine Nitrite Negative (NEG) Urine Bilirubin Negative (NEG) Urine Urobilinogen Dipstick 0.2 mg/dL (0.2 mg/dL) Urine Leukocyte Esterase Small (NEG) Urine RBC 0 /HPF (0-2) Urine WBC 5-10 /HPF (0-4) Urine Squamous Epithelial Cells Mod /LPF Urine Transitional Epithelial Cells Few /LPF Urine Bacteria Moderate /HPF (0-FEW) Urine Hyaline Casts Moderate /HPF Urine Mucus Slight /LPF Nasal Screen MRSA (PCR) Negative (Negative) Triglycerides Level 72 mg/dL (0-150) Cholesterol Level 174 mg/dL (0-200) LDL Cholesterol, Calculated 109 mg/dL (0-100) VLDL Cholesterol, Calculated 14 mg/dL (0-40) Non-HDL Cholesterol Calculated 123 mg/dL (0-129) HDL Cholesterol 51 mg/dL (40-60) Cholesterol/HDL Ratio 3.4 Thyroid Stimulating Hormone (TSH) 2.596 uIU/mL (0.358-3.74) Test 05/16/17 04:42 Sodium Level 131 mmol/L (136-145) Potassium Level 4.4 mmol/L (3.5-5.1) Chloride Level 98 mmol/L (98-107) Carbon Dioxide Level 26 mmol/L (21-32) Anion Gap 7 (6-14) Blood Urea Nitrogen 17 mg/dL (7-20) Creatinine 2.1 mg/dL (0.6-1.0) Estimated GFR (Cockcroft-Gault) 26.9 Glucose Level 88 mg/dL (70-99) Calcium Level 8.9 mg/dL (8.5-10.1) Laboratory Tests Test 05/16/17 04:42 Sodium Level 131 mmol/L (136-145) Potassium Level 4.4 mmol/L (3.5-5.1) Chloride Level 98 mmol/L (98-107) Carbon Dioxide Level 26 mmol/L (21-32) Anion Gap 7 (6-14) Blood Urea Nitrogen 17 mg/dL (7-20) Creatinine 2.1 mg/dL (0.6-1.0) Estimated GFR (Cockcroft-Gault) 26.9 Glucose Level 88 mg/dL (70-99) Calcium Level 8.9 mg/dL (8.5-10.1) Medications Current Medications Carvedilol (Coreg) 3.125 mg BIDWMEALS PO Last administered on 05/15/17 17:24; Start 05/15/17 at 08:00 Cyanocobalamin (Vitamin B-12) 1,000 mcg DAILY PO Last administered on 08:41; Start 05/15/17 at 09:00 Ergocalciferol (Vitamin D2) 50,000 unit WEEKLY PO ; Start 05/21/17 at 09:00 Ferrous Sulfate (Feosol) 325 mg DAILY PO Last administered on 05/15/17 08:41; Start 05/15/17 at 09:00 Vitamin B Complex/ Vitamin C (Sravanthi-Satinder) 1 tab DAILY PO Last administered on 08:41; Start 05/15/17 at 09:00 Acetaminophen/ Hydrocodone Bitart (Lortab 5/325) 1 tab PRN Q6HRS PRN PO SEVERE PAIN; Start 05/14/17 at 23:00 Pantoprazole Sodium (Protonix) 40 mg DAILYAC PO Last administered on 05/15/17 08:41; Start 05/15/17 at 07:30 Info (Do NOT chart on this placeholder) 1 each 1X ONCE MC ; Start 05/15/17 at 00:00; Stop 05/15/17 at 00:01; Status UNV Influenza Virus Vaccine Quadrival (Fluarix Quad [id number] Syringe) 0.5 ml ONCE ONCE VAX IM Last administered on 05/15/17 14:37; Start 05/15/17 at 09:00; Stop 05/15/17 at 09:01; Status DC Amlodipine Besylate (Norvasc) 5 mg DAILY PO Last administered on 05/15/17 14: 33; Start 05/15/17 at 12:45 Active Scripts Active Amlodipine Besylate 5 Mg Tablet 5 Mg PO DAILY Aranesp Syringe (Darbepoetin Angel In Polysorbat) 60 Mcg/0.3 Ml Disp.syrin 60 Mcg SQ WEEKLYHS Vitamin B-12 (Cyanocobalamin (Vitamin B-12)) 1,000 Mcg Tablet 1,000 Mcg PO DAILY Reported [place] 5-325 Tablet (Acetaminophen/Hydrocodone Bitart) 1 Each Tablet 1 Tab PO PRN Q6HRS PRN Sravanthi-Satinder Tablet (Folic Acid/Vitamin B Comp W-C) 0.8 Mg Tablet 0.8 Mg PO Pantoprazole Sodium 40 Mg Tablet. 1 Tab PO DAILY Iron Supplement (Ferrous Sulfate) 325 Mg Tablet 1 Tab PO DAILY Vitamin D2 (Ergocalciferol (Vitamin D2)) 50,000 Unit Capsule 1 Cap PO WEEKLY Coreg (Carvedilol) 3.125 Mg Tablet 1 Tab PO BID No Known Medications Prior To Admisstion (Info) Each 1 Each Vitals/I & O Vital Sign - Last 24 Hours 05/15/17 05/15/17 05/15/17 05/15/17 11:13 14:33 15:16 17:24 Temp 98.1 98.3 98.1 98.3 Pulse 63 63 42 68 Resp 18 18 B/P (MAP) 154/55 (88) 154/55 135/58 (83) 135/58 Pulse Ox 99 99 O2 Delivery Room Air Room Air 05/15/17 05/15/17 05/15/17 05/16/17 19:41 20:00 23:00 02:52 Temp 97.9 98.1 98.1 97.9 98.1 98.1 Pulse 70 60 77 Resp 16 18 18 B/P (MAP) 136/49 (78) 151/85 (107) 150/70 (96) Pulse Ox 99 98 97 O2 Delivery Room Air Room Air Room Air Room Air 05/16/17 07:30 Temp 98.7 98.7 Pulse 65 Resp 19 B/P (MAP) 126/57 (80) Pulse Ox 99 O2 Delivery Room Air GARY MARY III DO May 16, 2017 09:23
[2017-05-16] MEDS: amLODIPine BESYLATE 5 MG TABLET PO SCH (09:45)
[2017-05-16] MEDS: FERROUS SULFATE 325 MG TABLET. PO SCH (09:45)
[2017-05-16] MEDS: CYANOCOBALAMIN (VITAMIN B-12) 1,000 MCG TABLET. PO SCH (09:45)
[2017-05-16] MEDS: PANTOPRAZOLE 40 MG TABLET.DR. PO SCH (09:45)
[2017-05-16] MEDS: CARVEDILOL 3.125 MG TABLET. PO SCH (09:45)
[2017-05-16] MEDS: FOLIC/VIT B COMP W-C (RENAL) TABLET. PO SCH (09:45)
[2017-05-16 11:21] VITALS: BP 122/46
--- NOTE | 2017-05-16 12:46 | PDOC ---
Renal-Progress Notes Subjective Notes Notes FEELS WELL, WALKING THE HALLWAYS WITH HELP History of Present Illness Hx of present illness BETTER Vitals Vitals Vital Signs Date Time Temp Pulse Resp B/P (MAP) Pulse Ox O2 Delivery O2 Flow Rate FiO2 05/16/17 11:21 98.6 75 19 122/46 (71) 99 Room Air 98.6 Weight Weight [ ] Labs Labs Laboratory Tests Test 05/16/17 04:42 Sodium Level 131 mmol/L (136-145) Potassium Level 4.4 mmol/L (3.5-5.1) Chloride Level 98 mmol/L (98-107) Carbon Dioxide Level 26 mmol/L (21-32) Anion Gap 7 (6-14) Blood Urea Nitrogen 17 mg/dL (7-20) Creatinine 2.1 mg/dL (0.6-1.0) Estimated GFR (Cockcroft-Gault) 26.9 Glucose Level 88 mg/dL (70-99) Calcium Level 8.9 mg/dL (8.5-10.1) Review of Systems Constitutional: yes: weakness, alert, oriented Ears/Nose/Throat: Yes: no symptom reported Cardiovascular: Yes no symptom reported Gastrointestional: Yes: no symptom reported Musculoskeletal: Yes: no symptom reported Skin: Yes no symptom reported Psychiatric/Neurological: Yes: no symptom reported Endocrine: Yes: no symptom reported Physical Exam General Appearance: no apparent distress Respiratory: bilateral CTA Heart: S1S2 Abdomen: soft, bowel sounds present Extremities: pulses present Neurology: alert Musculoskeletal: Osteoarthritis Assessment Assessment IMP SYNCOPE CKD STAGE 4-CR STABLE AT 2.1 HTN MILD HYPONATREMIA-CHRONIC AND STABLE ANEMIA PLAN SYNCOPE WORK UP WILL FOLLOW NEEDED KRISTEN HAIR MD May 16, 2017 12:46
--- NOTE | 2017-05-16 14:04 | PDOC ---
CARDIO Progress Notes Date and Time Date of Service 05/16/17 Time of Evaluation 1145 Subjective Subjective: No Chest Pain, No shortness of breath, No Dizziness Vitals Vitals Vital Signs Date Time Temp Pulse Resp B/P (MAP) Pulse Ox O2 Delivery O2 Flow Rate FiO2 05/16/17 11:21 98.6 75 19 122/46 (71) 99 Room Air 98.6 Weight Weight [ ] Laboratory Labs Laboratory Tests Test 05/16/17 04:42 Sodium Level 131 mmol/L (136-145) Potassium Level 4.4 mmol/L (3.5-5.1) Chloride Level 98 mmol/L (98-107) Carbon Dioxide Level 26 mmol/L (21-32) Anion Gap 7 (6-14) Blood Urea Nitrogen 17 mg/dL (7-20) Creatinine 2.1 mg/dL (0.6-1.0) Estimated GFR (Cockcroft-Gault) 26.9 Glucose Level 88 mg/dL (70-99) Calcium Level 8.9 mg/dL (8.5-10.1) Review of Systems Constitutional: yes: weakness, alert, oriented Ears/Nose/Throat: Yes: no symptom reported Cardiovascular: Yes no symptom reported Gastrointestional: Yes: no symptom reported Musculoskeletal: Yes: no symptom reported Skin: Yes no symptom reported Psychiatric/Neurological: Yes: no symptom reported Endocrine: Yes: no symptom reported Physical Exam HEENT: Neck Supple W Full Motion Chest: Symmetric LUNGS: Clear to Auscultation Heart: S1S2, RRR, murmurs (2/6 systolic murmur ) Abdomen: Soft N/T Extremities: No Edema, No Calf Tenderness Neurology: alert, oriented, follow commands Assessment Assessment 1. Syncope/pre-syncope; no acute events/significant arrhythmias noted on telemetry. Echo showed normal LV function. No significant valvular abnormalities noted. Will plan for outpatient event monitor with follow up in 4 weeks. 2. Hypertension; now controlled 3. CKD; stable with Cr at baseline ALBERTO CASTILLO APRN May 16, 2017 14:04
[2017-05-21] MEDS ORDERED: ERGOCALCIFEROL (VITAMIN D2) 50,000 UNIT CAPSULE. PO SCH (09:00)
--- NOTE | 2017-06-05 12:46 | DS ---
DATE OF DISCHARGE: 05/16/2017 ADMISSION DIAGNOSIS: Syncope. DISCHARGE DIAGNOSIS: Syncope, suspect dehydration or perhaps an arrhythmia. HOSPITAL COURSE: The patient is a pleasant 86-year-old female who had a syncopal episode. She was admitted. We did cardiac monitoring. We gave her fluids. She did well. We discharged her home with home health. DISPOSITION: Home with home health. ACTIVITY: As tolerated. DIET: Low sodium. MEDICATIONS: Please see the MRAD. TOTAL TIME: 34 minutes. GARY MARY DO DR: GEENA/cris JOB#: [id number] / [id number]
== END 2017-05-16 13:10 | disposition home or self-care (01) | DRG 74 ==
LOC: ER 14:38 → 6 SOUTH 19:00
PROVIDERS: ADMIT Internal Medicine; ATTEND Internal Medicine
DX: G90.8 Other disorders of autonomic nervous system (principal); N18.4 Chronic kidney disease, stage 4 (severe); E44.0 Moderate protein-calorie malnutrition; F03.90 Unspecified dementia, unspecified severity, without behavioral disturbance, psychotic disturbance, mood disturbance, and anxiety; E87.1 Hypo-osmolality and hyponatremia; W18.39XA Other fall on same level, initial encounter; D63.1 Anemia in chronic kidney disease; E03.9 Hypothyroidism, unspecified; I12.9 Hypertensive chronic kidney disease with stage 1 through stage 4 chronic kidney disease, or unspecified chronic kidney disease; K21.9 Gastro-esophageal reflux disease without esophagitis; Y93.89 Activity, other specified; Y92.098 Other place in other non-institutional residence as the place of occurrence of the external cause; Y99.8 Other external cause status; Z82.49 Family history of ischemic heart disease and other diseases of the circulatory system; Z87.11 Personal history of peptic ulcer disease; Z90.13 Acquired absence of bilateral breasts and nipples; Z85.3 Personal history of malignant neoplasm of breast; Z98.42 Cataract extraction status, left eye; Z98.41 Cataract extraction status, right eye; Z68.21 Body mass index [BMI] 21.0-21.9, adult; Z90.89 Acquired absence of other organs; Z88.0 Allergy status to penicillin; Z91.040 Latex allergy status
CPT/HCPCS: 36415; 70450; 71010; 80048; 80053; 80061; 81001; 84443; 84484; 85025; 87086; 87186; 87641; 90686; 93005; 93306; 97116; 99285-25

== ENCOUNTER 2017-06-11 13:18 | Emergency (ER) | payer MEDICARE, BC ==
[~2017-06-11] VITALS: Ht 147.3 cm; Wt 51.3 kg
[~2017-06-11 13:18] MED LIST changes: +AMLO5TAB2 PO; +HYDR-971 PO; +PANT40TA5 PO
[2017-06-11] MEDS ORDERED: IV NORMAL SALINE 1000ML BAG 1,000 ML IV ONE (13:45)
[2017-06-11 13:46] LABS: BASO % 1 % (0-3); EOS % 4 % (0-3); HEMATOCRIT 30.2 % (36.0-47.0); HEMOGLOBIN 9.9 g/dL (12.0-15.5); LYMPH # 1.3 x10^3/uL (1.0-4.8); LYMPH % 22 % (24-48); MEAN CORPUSCULAR HEMOGLOBIN 27 pg (25-35); MEAN CORPUSCULAR HGB CONC 33 g/dL (31-37); MEAN CORPUSCULAR VOLUME 84 fL (79-100); MONO % 18 % (0-9); NEUT % 54 % (31-73); PLATELET COUNT 222 x10^3/uL (140-400); RED CELL DISTRIBUTION WIDTH 13.7 % (11.5-14.5); WHITE BLOOD COUNT 5.9 x10^3/uL (4.0-11.0)
[2017-06-11 13:54] LABS: CALCIUM 8.9 mg/dL (8.5-10.1); CREATININE 2.7 mg/dL (0.6-1.0); GFR 20.1; POTASSIUM 4.4 mmol/L (3.5-5.1)
--- NOTE | 2017-06-11 13:55 | PHYS DOC ---
Past Medical History Past Medical History: Anemia, Cancer, Dementia, GERD, Heart Disease, Hypertension, Hypothyroid, UTI, Unknown, Other Additional Past Medical Histor: PT STATES SHE HAS A HEART AND KIDNEY PROBLEM, Breast Ca Past Surgical History: Tonsillectomy Additional Past Surgical Histo: CATARACTS, BILAT.MASECTOMY Alcohol Use: Occasionally Drug Use: None Adult General Chief Complaint Chief Complaint: SYNCOPE HPI HPI 87-year-old female with a history of anemia, mild dementia lives at [facility], gastroesophageal reflux, coronary artery disease, hypertension, hypothyroidism, prior urinary tract infections, currently with a Holter monitor in place now presents the emergency department after episode of near-syncope prior to arrival. Patient states she stood up and got lightheaded. This happened twice. She did not lose consciousness or fall. She has no focal deficit nor did she have any visual or speech changes or focal weakness at any time. Patient reports normal bowel and bladder habits she is not sure she's been drinking enough fluids. Denies chest pain or shortness of breath. No palpitations. Currently asymptomatic at rest Review of Systems Review of Systems Constitutional: Denies fever or chills [] Eyes: Denies change in visual acuity, redness, or eye pain [] HENT: Denies nasal congestion or sore throat [] Respiratory: Denies cough or shortness of breath [] Cardiovascular: No additional information not addressed in HPI [] GI: Denies abdominal pain, nausea, vomiting, bloody stools or diarrhea [] : Denies dysuria or hematuria [] Musculoskeletal: Denies back pain or joint pain [] Integument: Denies rash or skin lesions [] Neurologic: Denies headache, focal weakness or sensory changes []nonfocal neurologic exam including full cranial nerve evaluation Endocrine: Denies polyuria or polydipsia [] Current Medications Current Medications Current Medications Medications (Trade) Dose Ordered Sig/Shay Start Time Stop Time Status Last Admin Dose Admin Ceftriaxone Sodium 1 gm/ Dextrose 50 ml @ 0 mls/hr 1X STAT 06/11/17 15:39 06/11/17 15:40 UNV Ceftriaxone Sodium 50 ml @ 100 mls/hr 1X ONCE 06/11/17 16:00 06/11/17 16:29 DC 06/11/17 16:15 100 MLS/HR Sodium Chloride 500 ml @ 999 mls/hr 1X ONCE 06/11/17 16:00 06/11/17 16:30 DC 06/11/17 16:15 999 MLS/HR Allergies Allergies Allergies Coded Allergies Type Severity Reaction Last Updated Verified Penicillins Allergy Intermediate Rash 02/14/16 Yes latex Allergy Intermediate Rash 02/14/16 Yes Physical Exam Physical Exam Constitutional: Well developed, well nourished, no acute distress, non-toxic appearance. Perfectly groomed alert cheerful communicative and appropriate.[] HENT: Normocephalic, atraumatic, bilateral external ears normal, mildly dry mucous membranes, no oral exudates, nose normal. [] Eyes: PERRLA, EOMI, conjunctiva normal, no discharge. [] Neck: Normal range of motion, no tenderness, supple, no stridor. [] Cardiovascular:Heart rate regular rhythm, no murmur []mild bradycardia in the 50s Lungs & Thorax: Bilateral breath sounds clear to auscultation [] Abdomen: Bowel sounds normal, soft, no tenderness, no masses, no pulsatile masses. [] Skin: Warm, dry, no erythema, no rash. [] Back: No tenderness, no CVA tenderness. [] Extremities: No tenderness, no cyanosis, no clubbing, ROM intact, no edema. [] Neurologic: Alert and oriented X 3, normal motor function, normal sensory function, no focal deficits noted. [] Psychologic: Affect normal, judgement normal, mood normal. [] Current Patient Data Vital Signs Vital Signs Date Time Temp Pulse Resp B/P (MAP) Pulse Ox O2 Delivery O2 Flow Rate FiO2 06/11/17 15:57 82 16 102/75 (84) 99 Room Air 06/11/17 13:24 97.6 97.6 Lab Values Laboratory Tests Test 06/11/17 13:20 06/11/17 14:20 White Blood Count 5.9 x10^3/uL (4.0-11.0) Red Blood Count 3.60 x10^6/uL (3.50-5.40) Hemoglobin 9.9 g/dL (12.0-15.5) L Hematocrit 30.2 % (36.0-47.0) L Mean Corpuscular Volume 84 fL (79-100) Mean Corpuscular Hemoglobin 27 pg (25-35) Mean Corpuscular Hemoglobin Concent 33 g/dL (31-37) Red Cell Distribution Width 13.7 % (11.5-14.5) Platelet Count 222 x10^3/uL (140-400) Neutrophils (%) (Auto) 54 % (31-73) Lymphocytes (%) (Auto) 22 % (24-48) L Monocytes (%) (Auto) 18 % (0-9) H Eosinophils (%) (Auto) 4 % (0-3) H Basophils (%) (Auto) 1 % (0-3) Neutrophils # (Auto) 3.2 x10^3uL (1.8-7.7) Lymphocytes # (Auto) 1.3 x10^3/uL (1.0-4.8) Monocytes # (Auto) 1.1 x10^3/uL (0.0-1.1) Eosinophils # (Auto) 0.3 x10^3/uL (0.0-0.7) Basophils # (Auto) 0.0 x10^3/uL (0.0-0.2) Segmented Neutrophils % 52 % (35-66) Band Neutrophils % 4 % (0-9) Lymphocytes % 18 % (24-48) L Atypical Lymphocytes % (Manual) 2 % (0-0) H Monocytes % 19 % (0-10) H Eosinophils % 5 % (0-5) Platelet Estimate Adequate (ADEQUATE) Poikilocytosis Slight Schistocytes Occ Sodium Level 131 mmol/L (136-145) L Potassium Level 4.4 mmol/L (3.5-5.1) Chloride Level 97 mmol/L (98-107) L Carbon Dioxide Level 26 mmol/L (21-32) Anion Gap 8 (6-14) Blood Urea Nitrogen 22 mg/dL (7-20) H Creatinine 2.7 mg/dL (0.6-1.0) H Estimated GFR (Cockcroft-Gault) 20.1 BUN/Creatinine Ratio 8 (6-20) Glucose Level 148 mg/dL (70-99) H Calcium Level 8.9 mg/dL (8.5-10.1) Total Bilirubin 0.3 mg/dL (0.2-1.0) Aspartate Amino Transferase (AST) 31 U/L (15-37) Alanine Aminotransferase (ALT) 21 U/L (14-59) Alkaline Phosphatase 66 U/L (46-116) Troponin I Quantitative < 0.017 ng/mL (0.000-0.055) Total Protein 6.4 g/dL (6.4-8.2) Albumin 2.7 g/dL (3.4-5.0) L Albumin/Globulin Ratio 0.7 (1.0-1.7) L Thyroid Stimulating Hormone (TSH) 5.586 uIU/mL (0.358-3.74) H Urine Collection Type U cath Urine Color Yellow Urine Clarity Turbid Urine pH 6.0 Urine Specific [place] 1.010 Urine Protein 30 mg/dL (NEG-TRACE) Urine Glucose (UA) Negative mg/dL (NEG) Urine Ketones (Stick) Negative mg/dL (NEG) Urine Blood Moderate (NEG) Urine Nitrite Negative (NEG) Urine Bilirubin Negative (NEG) Urine Urobilinogen Dipstick 0.2 mg/dL (0.2 mg/dL) Urine Leukocyte Esterase Large (NEG) Urine RBC Fobs /HPF (0-2) Urine WBC Tntc /HPF (0-4) Urine Bacteria Many /HPF (0-FEW) Laboratory Tests 06/11/17 13:20 Laboratory Tests 06/11/17 13:20 EKG EKG EKG with mild bradycardia, normal sinus rhythm at 52 normal axis no STEMI[] carpeted by me. Radiology/Procedures Radiology/Procedures Chest x-ray[] Course & Med Decision Making Course & Med Decision Making 87-year-old female now status post episode insistent with orthostatic near syncope. Patient is asymptomatic and well-appearing. She has a completely benign exam but she does have some clinical orthostasis with systolic blood pressure dropping from 1:30 to 100 with standing. Full workup pending. We will hydrate patient with 1 L normal saline reevaluate clinically correlate with laboratory results regarding disposition. UA consistent with UTI. Rocephin given and Keflex will be prescribed. Chronic renal insufficiency with creatinine 2.1 on May 16 however 2.7 today. IV fluids administered. Hemoglobin 9.9 up from 9.3 and April. Intact case in details discussed with Dr. Dimitrios Mortensen patient's doctor who is assuming her care tomorrow morning. Patient is very well-appearing and she is asymptomatic on multiple re-evaluations. She would like to be treated as an outpatient. Dr. Mortensen aware of the history and findings and agrees with outpatient follow-up as scheduled tomorrow. Patient is aware to return immediately for new severe worsening symptoms. Pertinent Labs and Imaging studies reviewed. (See chart for details) [] Dragon Disclaimer Dragon Disclaimer This electronic medical record was generated, in whole or in part, using a voice recognition dictation system. Departure Departure Impression: Primary Impression: Orthostatic syncope Additional Impressions: Mild dehydration Urinary tract infection Chronic renal insufficiency Disposition: HOME, SELF-CARE Condition: STABLE Referrals: DIMITRIOS MORTENSEN (PCP) Patient Instructions: Chronic Renal Insufficiency, Orthostatic Hypotension, Urinary Tract Infection Additional Instructions: Your lightheadedness with standing is a result of mild dehydration in the setting of urinary tract infection. Finish antibiotics as prescribed for urinary tract infection. U have chronic renal insufficiency, which means your kidneys do not function perfectly. Your creatinine which is a measure of your kidney function was more elevated today than is typical for you. Previously your creatinine was 2.1 in April of this year and today was 2.7. You have been hydrated with 2 L of normal saline solution however he still need to make a conscious effort to careful when standing and ambulating. If you have any symptoms whatsoever be sure to have assistance and walk with a walker. You have anemia that your hemoglobin is actually improved at 9.9 today, up from 9.3 in April. Follow-up with Dr. Dimitrios Mortensen tomorrow as scheduled at 10:30 AM for reevaluation, recheck of your creatinine, to establish your new doctor- patient relationship, and for further treatment as needed. Return immediately for new severe or worsening symptoms Scripts Cephalexin (KEFLEX) 500 Mg Capsule 1 CAP PO QID, #40 CAP Prov: JACKY CARTER MD 06/11/17 Problem Qualifiers JACKY CARTER MD Jun 11, 2017 13:55
[2017-06-11 14:00] LABS: ALBUMIN 2.7 g/dL (3.4-5.0); ALBUMIN/GLOBULIN RATIO 0.7 (1.0-1.7); TOTAL BILIRUBIN 0.3 mg/dL (0.2-1.0); TOTAL PROTEIN 6.4 g/dL (6.4-8.2)
[2017-06-11 14:23] LABS: % EOS 5 % (0-5); PLT ESTIMATE ADEQUATE (ADEQUATE)
--- NOTE | 2017-06-11 14:23 | RAD ---
Portable chest, 06/11/2017: History: Syncope, medical workup Comparison is made to a study from 05/14/2017. The heart size and pulmonary vascularity are normal. There is calcific plaquing of the aorta. No pulmonary infiltrate is seen. There is no evidence of pleural fluid. Arthritic changes are present in the spine and at both shoulders. There are surgical clips projected over the left axillary region. IMPRESSION: No acute cardiopulmonary abnormality is detected.
[2017-06-11 14:24] LABS: POIKILOCYTOSIS SLIGHT; SCHISTOCYTES OCC
[2017-06-11 14:28] LABS: BILIRUBIN,URINE NEGATIVE (NEG); GLUCOSE,URINE NEGATIVE (NEG); NITRITE,URINE NEGATIVE (NEG); PROTEIN,URINE 30 mg/dL (NEG-TRACE); UROBILINOGEN,URINE 0.2 mg/dL (0.2 mg/dL)
[2017-06-11 14:34] LABS: BACTERIA,URINE MANY /HPF (0-FEW); WBC,URINE TNTC /HPF (0-4)
--- NOTE | 2017-06-11 14:34 | EKG ---
[facility] [address] [place] [id number] Test Date: 2017-06-11 Test Time: 13:28:40 Pat Name: SHYAM HAM Department: Room: Gender: F [employer]: : [id number] Requested By: JACKY CARTER Order Number: [id number] Reading MD: Pao Chow Measurements Intervals [place] Rate: 52 P: 29 VT: 134 QRS: 28 QRSD: 72 T: 41 QT: 438 QTc: 409 Interpretive Statements SINUS RHYTHM NORMAL ECG Electronically Signed On 06-14-2017 14:38:26 CDT by Pao Chow
[2017-06-11 14:35] LABS: RBC,URINE FOBS /HPF (0-2)
[2017-06-11] MEDS ORDERED: IV NORMAL SALINE 1000ML BAG 500 ML IV ONE (16:00)
[2017-06-11] MEDS ORDERED: CEPH-264 PO (17:13)
[2017-06-11 17:27] VITALS: BP 152/67
== END 2017-06-11 17:40 | disposition home or self-care (01) ==
LOC: ER 13:18
DX: R55 Syncope and collapse (principal); E86.0 Dehydration; N39.0 Urinary tract infection, site not specified; I13.10 Hypertensive heart and chronic kidney disease without heart failure, with stage 1 through stage 4 chronic kidney disease, or unspecified chronic kidney disease; N18.9 Chronic kidney disease, unspecified; I25.10 Atherosclerotic heart disease of native coronary artery without angina pectoris; F03.90 Unspecified dementia, unspecified severity, without behavioral disturbance, psychotic disturbance, mood disturbance, and anxiety; E03.9 Hypothyroidism, unspecified; K21.9 Gastro-esophageal reflux disease without esophagitis; Z86.2 Personal history of diseases of the blood and blood-forming organs and certain disorders involving the immune mechanism; Z87.440 Personal history of urinary (tract) infections; Z90.13 Acquired absence of bilateral breasts and nipples; Z91.040 Latex allergy status; Z88.0 Allergy status to penicillin
CPT/HCPCS: 36415; 71010; 80053; 81001; 84443; 84484; 85007; 85025; 87086; 87186; 93005; 96361; 96365; 99285; J0690; J7030; P9612

== ENCOUNTER → 2017-07-14 | Outpatient (CLI) | payer MEDICARE, BC ==
[~2017-07-14] MED LIST changes: +CEPH-264 PO
[2017-07-14 15:56] LABS: BASO % 1 % (0-3); EOS % 5 % (0-3); HEMATOCRIT 30.2 % (36.0-47.0); HEMOGLOBIN 9.9 g/dL (12.0-15.5); LYMPH # 1.5 x10^3/uL (1.0-4.8); LYMPH % 20 % (24-48); MEAN CORPUSCULAR HEMOGLOBIN 27 pg (25-35); MEAN CORPUSCULAR HGB CONC 33 g/dL (31-37); MEAN CORPUSCULAR VOLUME 84 fL (79-100); MONO % 11 % (0-9); NEUT % 64 % (31-73); PLATELET COUNT 225 x10^3/uL (140-400); WHITE BLOOD COUNT 7.8 x10^3/uL (4.0-11.0)
[2017-07-14 16:41] LABS: CALCIUM 8.5 mg/dL (8.5-10.1); CREATININE 2.6 mg/dL (0.6-1.0); POTASSIUM 4.8 mmol/L (3.5-5.1)
[2017-07-14 16:59] LABS: % SAT IRON 46 % (15-34); IRON,SERUM 77 ug/dL (50-170)
== END | disposition home or self-care (01) ==
LOC: SPEC 15:03
PROVIDERS: ATTEND Family Medicine
DX: I12.9 Hypertensive chronic kidney disease with stage 1 through stage 4 chronic kidney disease, or unspecified chronic kidney disease (principal); N18.3 Chronic kidney disease, stage 3 (moderate); D63.1 Anemia in chronic kidney disease; R55 Syncope and collapse
CPT/HCPCS: 36415; 80048; 82607; 83540; 83550; 85025